=== PATIENT | male | born 2000 | race Hispanic/Latino ===

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

== ENCOUNTER 2022-09-25 22:09 | Emergency (ER) | payer SELFPAY ==
--- OUTSIDE RECORDS SUMMARY | 2022-09-25 22:12 | XMS REPORT | Continuity of Care Document ---
:[address] [facility] t Address [address] [place] [address] Care Team Providers Name Role Phone CEM PRADO Attending Clinician Unavailable Problems This patient has no known problems. Allergies, Adverse Reactions, Alerts This patient has no known allergies or adverse reactions. Medications This patient has no known medications. Procedures This patient has no known procedures. Encounters Start End Encounter Admission Attending Care Care Encounter Source Date/Time Date/Time Type Type Clinicians Facility Department ID 2020-04-18 2020-04-18 [id number] 18:29:00 22:07:00 Results This patient has no known results.
[2022-09-25 23:11] LABS: Urine Blood Trace-intact (Negative); Urine Glucose Negative (Negative); Urine Protein 1+ (Negative); Urine Specific Gravity 1.025 (1.005-1.030); Urine pH 6.5 (5.0-7.0)
--- NOTE | 2022-09-25 23:32 | EDPHYS ---
Physician Documentation [facility] Name: Robbi Perez Age: 22 yrs Sex: Male : 2000 Arrival Date: 09/25/2022 Time: 22:12 Bed 15 Private MD: ED Physician Ector Klein HPI: 09/25 23:27 This 22 yrs old Male presents to ER via Ambulatory with complaints of Urinary bs3 Incontinence. 23:27 22-year-old male no significant past medical history presents with pain with urination bs3 and dribbling for the past several days he notes last sexual activity was 2 months ago no history of sexually transmitted infections pain is moderate in intensity nothing makes it better or worse he did have similar episode several years ago saw a doctor and never got a diagnosis. Historical: - Allergies: 22:31 No Known Allergies; kb3 - Home Meds: 22:31 None [Active]; kb3 - PMHx: 22:31 None; kb3 - PSHx: 22:31 None; kb3 - Immunization history:: Adult Immunizations up to date, Client reports having NOT received the Covid vaccine. Last tetanus immunization: up to date. - Social history:: Smoking status: Reported history of juuling and/or vaping. ROS: 23:27 Constitutional: Negative for fever, chills bs3 23:27 All other systems are negative. Exam: 23:27 Constitutional: This is a well developed, well nourished patient who is awake, alert, bs3 and in no acute distress. Head/Face: Normocephalic, atraumatic. Eyes: Pupils equal round and reactive to light, extra-ocular motions intact. Lids and lashes normal. ENT: mmm, no posterior phyarngeal erythema Neck: Trachea midline, no thyromegaly, no neck stiffness Cardiovascular: Regular rate and rhythm with a normal S1 and S2. symmetric pulses in upper extremities Abdomen/GI: Soft, non-tender, no rebound or guarding Male : Normal genitalia with no discharge or lesions. Skin: Warm, dry with normal turgor. Normal color with no rashes, no lesions, and no evidence of cellulitis. MS/ Extremity: Pulses equal, no cyanosis. Neurovascular intact. Full, normal range of motion. Neuro: Awake and alert, GCS 15, oriented to person, place, time, and situation. Cranial nerves II-XII grossly intact. Motor strength 5/5 in all extremities. Sensory grossly intact. Vital Signs: 22:28 BP 133 / 83; Pulse 52; Resp 16; Temp 98.3; Pulse Ox 100% ; Weight 65.77 kg; Height 5 kb3 ft. 8 in. (172.72 cm); Pain 3/10; 23:57 BP 128 / 79; Pulse 61; Resp 18; Temp 98.1(O); Pulse Ox 100% on R/A; ke1 22:28 Body Mass Index 22.05 (65.77 kg, 172.72 cm) kb3 MDM: 22:34 Patient medically screened. bs3 23:27 Data reviewed: vital signs, nurses notes. ED course: Urine dipstick showed positive UTI bs3 discussed with patient patient does not think he has a sexually transmitted infection as he was only sexually active with 1 partner we gave options of testing and treating just treating and waiting for the result from treatment for a regular urinary tract infection patient preferred to treat for regular urinary tract infection strongly advised to return with fevers chills increased pain or any other concerning symptoms instructed to return if positive for GC/committee and instructed to follow-up with PCP and urology. 09/25 23:12 Order name: Urine Dipstick-Ancillary; Complete Time: 23:23 EDMS 09/25 23:27 Order name: GC (GONORR/CHLAMYDIA) Probe bs3 09/25 23:27 Order name: Urine Culture bs3 Administered Medications: No medications were administered Disposition Summary: 09/25/22 23:31 Discharge Ordered Location: Home bs3 Problem: new bs3 Symptoms: are unchanged bs3 Condition: Stable bs3 Diagnosis - UTI/ Urinary tract infection, site not specified bs3 Followup: bs3 - With: Private Physician - When: 1 week - Reason: Discharge Instructions: - Discharge Summary Sheet bs3 - Urinary Tract Infection, Adult bs3 Forms: - Medication Reconciliation Form bs3 - Thank You Letter bs3 - Work release form mw2 - Antibiotic Education bs3 - Prescription Opioid Use bs3 Prescriptions: - cefpodoxime 200 mg Oral Tablet - take 1 tablet by ORAL route every 12 hours with food; 20 tablet; Refills: 0, bs3 Product Selection Permitted Signatures: Dispatcher [employer] EDMS Agnes Woodruff, RN RN kb3 Ector Klein MD MD bs3
--- NOTE | 2022-09-25 23:32 | ER ---
Nurse's Notes [facility] Name: Robbi Perez Age: 22 yrs Sex: Male : 2000 Arrival Date: 09/25/2022 Time: 22:12 Bed 15 Private MD: Diagnosis: UTI/ Urinary tract infection, site not specified Presentation: 09/25 22:28 Chief complaint: Patient states: Pt reports pain with urination, urinary frequency, kb3 urinary incontinence x2-3 days with associated bilateral lower back pain. Coronavirus screen: Vaccine status: Patient reports being unvaccinated. Client denies travel out of the [place] in the last 14 days. Ebola Screen: Patient negative for fever greater than or equal to 101.5 degrees Fahrenheit, and additional compatible Ebola Virus Disease symptoms Patient denies exposure to infectious person. Patient denies travel to an Ebola-affected area in the 21 days before illness onset. Initial Sepsis Screen: Does the patient meet any 2 criteria? No. Patient's initial sepsis screen is negative. Does the patient have a suspected source of infection? No. Patient's initial sepsis screen is negative. Risk Assessment: Do you want to hurt yourself or someone else? Patient reports no desire to harm self or others. Onset of symptoms was September 22, 2022. 22:28 Method Of Arrival: Ambulatory kb3 22:28 Acuity: MATILDE 3 kb3 Triage Assessment: 22:31 General: Appears in no apparent distress. Behavior is calm, cooperative. Pain: kb3 Complains of pain in left low back, right low back and groin Pain does not radiate. Pain currently is 3 out of 10 on a pain scale. at worst was 10 out of 10 on a pain scale. Quality of pain is described as burning, sharp. 22:31 : Reports burning with urination, incontinence, urgency, urinary frequency. kb3 Historical: - Allergies: 22:31 No Known Allergies; kb3 - Home Meds: 22:31 None [Active]; kb3 - PMHx: 22:31 None; kb3 - PSHx: 22:31 None; kb3 - Immunization history:: Adult Immunizations up to date, Client reports having NOT received the Covid vaccine. Last tetanus immunization: up to date. - Social history:: Smoking status: Reported history of juuling and/or vaping. Screenin:30 Abuse screen: Denies threats or abuse. Nutritional screening: No deficits noted. ke1 Tuberculosis screening: No symptoms or risk factors identified. Fall Risk None identified. Vital Signs: 22:28 BP 133 / 83; Pulse 52; Resp 16; Temp 98.3; Pulse Ox 100% ; Weight 65.77 kg; Height 5 kb3 ft. 8 in. (172.72 cm); Pain 3/10; 23:57 BP 128 / 79; Pulse 61; Resp 18; Temp 98.1(O); Pulse Ox 100% on R/A; ke1 22:28 Body Mass Index 22.05 (65.77 kg, 172.72 cm) kb3 ED Course: 22:12 Patient arrived in ED. bp1 22:30 Patient has correct armband on for positive identification. ke1 22:30 Patient did not have IV access during this emergency room visit. ke1 22:31 Triage completed. kb3 22:31 Arm band placed on right wrist. kb3 22:34 Ector Klein MD is Attending Physician. bs3 23:31 Indiana Diaz, RN is Primary Nurse. ke1 23:38 Urine Culture Sent. ke1 23:56 No provider procedures requiring assistance completed. ke1 Administered Medications: No medications were administered Medication: 23:57 VIS not applicable for this client. ke1 Outcome: 23:31 Discharge ordered by . bs3 23:56 Discharged to home ambulatory. ke1 23:56 Condition: good 23:56 Discharge instructions given to patient. ke1 23:57 Patient left the ED. ke1 Signatures: Pat Byrne bp1 Indiana Diaz, JORGE RN ke1 Agnes Woodruff RN RN kb3 Ector Klein MD MD bs3
[2022-09-26 00:29] VITALS: O2SAT 100
[2022-09-26 00:30] VITALS: BP 128/79; TEMP 98.1
[2022-09-29 23:26] LABS: C.trachomatis RNA,TMA Not Detected (Not Detected)
== END 2022-09-25 23:57 | disposition home or self-care (01) ==
LOC: ER 22:09
DX: N39.0 Urinary tract infection, site not specified (principal)
CPT/HCPCS: 81003; 87077; 87086; 87088; 87186; 87490; 87590; 99283

== ENCOUNTER 2022-10-22 17:53 | Emergency (ER) | payer OTHER, SELFPAY ==
--- OUTSIDE RECORDS SUMMARY | 2022-10-22 17:55 | XMS REPORT | Continuity of Care Document ---
:2000 Author Organization [facility] t Address [address] [place] [address] Care Team Providers Name Role Phone CEM [...] ID 2020-04-18 2020-04-18 [facility] [id number] 18:29:00 22:07:00 Results This patient has no known results.
[2022-10-22] MEDS ORDERED: NA CHLORIDE 0.9% 1,000 ML ONE (18:22)
[2022-10-22 18:31] LABS: Protime INR 1.32
[2022-10-22 18:42] LABS: Absolute Lymphocytes (CBC) 2.3 K/uL (0.7-4.9); Hematocrit 40.1 % (39.6-49.0); Lymphocytes % 29.3 % (15.3-44.8); MCV 84.9 fL (80-100); MPV 7.7 fL (7.6-11.3); RBC Red Blood Cell Count 4.73 M/uL (4.33-5.43)
[2022-10-22 18:45] LABS: ALT/SGPT 20 U/L (12-78); AST/SGOT 14 U/L (15-37); Albumin 4.1 g/dL (3.4-5.0); Alkaline Phosphatase 57 U/L (45-117); BUN Blood Urea Nitrogen 20 mg/dL (7-18); Bicarbonate 25 mmol/L (21-32); Bilirubin Direct 0.4 mg/dL (0-0.2); Bilirubin Total 1.7 mg/dL (0.2-1.0); Glomerular Filtration Rate 98 ml/min (=/>90); Glucose Level 192 mg/dL (74-106); Potassium 3.2 mmol/L (3.5-5.1); Protein, Total 7.4 g/dL (6.4-8.2); Sodium Level 138 mmol/L (136-145)
--- NOTE | 2022-10-22 20:40 | EDPHYS ---
Physician Documentation [facility] Name: Robbi Perez Age: 22 yrs Sex: Male : 2000 Arrival Date: 10/22/2022 Time: 17:55 Bed 16 Private MD: ED Physician Avni Bowen HPI: 10/22 17:58 This 22 yrs old Male presents to ER via Unassigned with complaints of Anxiety. pm1 17:58 The patient presents to the emergency department with anxiety, from smoking THC from a pm1 vape pen he purchased from a gas station. Onset: The symptoms/episode began/occurred 2 hour(s) ago. Associated signs and symptoms: Pertinent positives; anxiety, palpitations, Pertinent negatives: chest pain, headache, nausea, shortness of breath, vomiting. Severity of symptoms: in the emergency department the symptoms are unchanged. The patient has not experienced similar symptoms in the past. The patient has not recently seen a physician. Patient daily marijuana smoker for the past year. Normally smokes marijuana in a joint but today he smoked THC from a vape pen and immediately started having anxiety and palpitations. Historical: - Allergies: 18:00 No Known Allergies; ss - Home Meds: 18:00 None [Active]; ss - PMHx: 18:00 None; ss - PSHx: 18:00 None; ss - Immunization history:: Adult Immunizations up to date, Client reports having NOT received the Covid vaccine. - Social history:: Smoking status: Patient reports the use of cigarette tobacco products, denies chronic smoking, but will smoke occasionally. ROS: 18:00 Constitutional: Negative for fever, chills, and weight loss. pm1 18:00 Respiratory: Negative for shortness of breath, cough, wheezing, and pleuritic chest pain, Abdomen/GI: Negative for abdominal pain, nausea, vomiting, diarrhea, and constipation, Back: Negative for injury and pain, MS/Extremity: Negative for injury and deformity, Skin: Negative for injury, rash, and discoloration, Neuro: Negative for headache, weakness, numbness, tingling, and seizure. 18:00 Cardiovascular: Positive for palpitations, Negative for chest pain. 18:00 Psych: Positive for anxiety. 18:00 All other systems are negative. Exam: 18:00 Constitutional: This is a well developed, well nourished patient who is awake, alert, pm1 and in no acute distress. Head/Face: Normocephalic, atraumatic. 18:00 Back: No spinal tenderness. No costovertebral tenderness. Full range of motion. Skin: Warm, dry with normal turgor. Normal color with no rashes, no lesions, and no evidence of cellulitis. MS/ Extremity: Pulses equal, no cyanosis. Neurovascular intact. Full, normal range of motion. 18:00 Eyes: Exam is negative for acute changes, Periorbital structures: no acute changes, Pupils: no acute changes, Extraocular movements: no acute changes, Conjunctiva: no acute changes, no injection. 18:00 ENT: Exam is negative for acute changes, Mouth: no acute changes, Lips: normal, moist, Oral mucosa: normal, pink and intact, moist. 18:00 Cardiovascular: Rate: tachycardic, actual rate is 111 bpm, Rhythm: regular, Pulses: no pulse deficits are appreciated, Heart sounds: normal, normal S1and S2, Edema: is not appreciated. 18:00 Respiratory: Exam negative for acute changes, respiratory distress, shortness of breath, Breath sounds: are clear throughout. 18:00 Abdomen/GI: Exam negative for acute changes, Inspection: abdomen appears normal, Palpation: abdomen is soft and non-tender, in all quadrants. 18:00 Neuro: Exam negative for acute changes, Orientation: is normal, Mentation: is normal, Motor: moves all fours. 18:00 Psych: Behavior/mood is anxious, Affect is animated, Oriented to person, place, time, Patient has no thoughts/intents to harm self or others. Delusions/hallucinations are not present. Vital Signs: 17:56 BP 142 / 84; Pulse 119; Resp 18; Temp 98.4; Pulse Ox 99% on R/A; Weight 63.5 kg; Height ss 5 ft. 8 in. (172.72 cm); Pain 0/10; 18:30 BP 128 / 76; Pulse 96; Resp 13; Pulse Ox 97% on R/A; tp1 18:58 BP 117 / 63; Pulse 82; Resp 18; Pulse Ox 98% on R/A; tp1 19:47 BP 106 / 58; Pulse 71; Resp 16; Temp 98.3; Pulse Ox 98% on R/A; Pain 0/10; ke1 20:47 BP 102 / 59; Pulse 73; Resp 17; Temp 98.2; Pulse Ox 100% on R/A; Pain 0/10; ke1 17:56 Body Mass Index 21.29 (63.50 kg, 172.72 cm) ss MDM: 17:56 Patient medically screened. pm1 18:02 Data reviewed: vital signs. Data interpreted: Pulse oximetry: on room air is 99 %. pm1 Interpretation: normal. 20:39 Counseling: I had a detailed discussion with the patient and/or guardian regarding: the pm1 historical points, exam findings, and any diagnostic results supporting the discharge/admit diagnosis, lab results, the need for outpatient follow up, to return to the emergency department if symptoms worsen or persist or if there are any questions or concerns that arise at home. 10/22 17:56 Order name: Acetaminophen; Complete Time: 18:53 pm1 10/22 17:56 Order name: Basic Metabolic Panel; Complete Time: 18:53 pm1 10/22 17:56 Order name: CBC with Diff; Complete Time: 18:45 pm1 10/22 17:56 Order name: ETOH Level; Complete Time: 18:53 pm1 10/22 17:56 Order name: Hepatic Function; Complete Time: 18:53 pm1 10/22 17:56 Order name: PT-INR; Complete Time: 18:38 pm1 10/22 17:56 Order name: Ptt, Activated; Complete Time: 18:38 pm1 10/22 17:56 Order name: Salicylate; Complete Time: 18:56 pm1 10/22 17:56 Order name: EKG; Complete Time: 17:57 pm1 10/22 17:56 Order name: EKG - Nurse/Tech; Complete Time: 18:15 pm1 10/22 17:56 Order name: IV Saline Lock; Complete Time: 17:59 pm1 10/22 17:56 Order name: Labs collected and sent; Complete Time: 17:59 pm1 EC:13 Rate is 100 beats/min. Rhythm is regular, Normal Sinus Rhythm with No ectopy. QRS [place] pm1 is Normal. ME interval is normal. QRS interval is normal. QT interval is normal. No Q waves. T waves are Normal. No ST changes noted. Clinical impression: Normal ECG. Administered Medications: 17:58 Drug: NS 0.9% 500 ml Volume: 500 ml; Route: IV; Rate: 1 bolus; Site: left antecubital; tp1 19:00 Follow up: IV Status: Completed infusion ke1 18:24 Drug: NS 0.9% 1000 ml Route: IV; Rate: 1000 ml; Site: left antecubital; tp1 19:15 Follow up: Rate change ml; IV Status: Completed infusion ke1 Disposition: 18:54 Co-signature as Attending Physician, Avni Bowen DO I was immediately available on-site ms3 in the Emergency Department for consultation in the care of the patient. Disposition Summary: 10/22/22 20:39 Discharge Ordered Location: Home pm1 Problem: new pm1 Symptoms: have improved pm1 Condition: Stable pm1 Diagnosis - Cannabis abuse pm1 - Dehydration pm1 Followup: pm1 - With: Emergency Department - When: As needed - Reason: Worsening of condition Followup: pm1 - With: Private Physician - When: 2 - 3 days - Reason: Recheck today's complaints, Continuance of care, Re-evaluation by your physician Discharge Instructions: - Discharge Summary Sheet pm1 - Dehydration, Adult pm1 - Cannabis Use Disorder pm1 Forms: - Medication Reconciliation Form pm1 - Thank You Letter pm1 - Antibiotic Education pm1 - Prescription Opioid Use pm1 Signatures: Dispatcher [employer] Amber Adams RN RN ss Marinas, Patrick, GIORGIO FEEDER LOADER pm1 Avni Bowen DO DO ms3 Sally Moses RN RN tp1 Indiana Diaz RN ke1
--- NOTE | 2022-10-22 20:40 | ER ---
Nurse's Notes [facility] Name: Robbi Perez Age: 22 yrs Sex: Male : 2000 Arrival Date: 10/22/2022 Time: 17:55 Bed 16 Private MD: Diagnosis: Cannabis abuse;Dehydration Presentation: 10/22 17:56 Chief complaint: Patient states: Anxiety that began after smoking "vape pen" from gas [place] station. Pt reports a hx of smoking marijuana for 1 year, has not smoked in 1 week until today. Initial HR on scene was 164, and came down to 130 after 250mL fluid bolus. Coronavirus screen: Client denies travel out of the [place] in the last 14 days. Ebola Screen: Patient denies exposure to infectious person. Patient denies travel to an Ebola-affected area in the 21 days before illness onset. Initial Sepsis Screen: Does the patient meet any 2 criteria? No. Patient's initial sepsis screen is negative. Does the patient have a suspected source of infection? No. Patient's initial sepsis screen is negative. Risk Assessment: Do you want to hurt yourself or someone else? Patient reports no desire to harm self or others. Onset of symptoms was October 22, 2022. 17:56 Method Of Arrival: EMS: [facility] 17:56 Acuity: MATILDE 3 ss Historical: - Allergies: 18:00 No Known Allergies; ss - Home Meds: 18:00 None [Active]; ss - PMHx: 18:00 None; ss - PSHx: 18:00 None; ss - Immunization history:: Adult Immunizations up to date, Client reports having NOT received the Covid vaccine. - Social history:: Smoking status: Patient reports the use of cigarette tobacco products, denies chronic smoking, but will smoke occasionally. Screenin:59 Abuse screen: Denies threats or abuse. Denies injuries from another. Nutritional tp1 screening: No deficits noted. Tuberculosis screening: No symptoms or risk factors identified. Fall Risk None identified. Assessment: 17:58 General: Appears in no apparent distress. comfortable, Behavior is calm, cooperative. tp1 Pain: Denies pain. Neuro: Level of Consciousness is awake, alert, obeys commands, Oriented to person, place, time, situation. Cardiovascular: Patient's skin is warm and dry. Cardiovascular: Rhythm is sinus tachycardia. Respiratory: Airway is patent Respiratory effort is even, unlabored. GI: Abdomen is flat, non-distended. : No signs and/or symptoms were reported regarding the genitourinary system. EENT: No signs and/or symptoms were reported regarding the EENT system. Derm: Skin is pink, warm \\T\\ dry. Musculoskeletal: Circulation, motion, and sensation intact. 17:58 Cardiovascular: Denies chest pain. tp1 18:22 Reassessment: Family at bedside. tp1 18:25 Reassessment: HR 136, PT CO chest pain, provider notified. asked family to wait in tp1 lobby. 18:28 Reassessment: PT stated family being in the room makes him anxious. HR 99. tp1 18:58 Reassessment: Patient appears in no apparent distress at this time. No changes from tp1 previously documented assessment. Patient and/or family updated on plan of care and expected duration. Pain level reassessed. Patient is alert, oriented x 3, equal unlabored respirations, skin warm/dry/pink. Patient denies pain at this time. 19:46 Reassessment: Patient appears in no apparent distress at this time. Patient and/or ke1 family updated on plan of care and expected duration. Pain level reassessed. Patient is alert, oriented x 3, equal unlabored respirations, skin warm/dry/pink. Patient denies pain at this time. 19:46 Reassessment: Still unable to provide urine. ke1 20:24 Reassessment: Patient lying in bed sleeping. ke1 20:48 Reassessment: Patient denies pain at this time. Patient states feeling better. Patient ke1 states symptoms have improved. Vital Signs: 17:56 BP 142 / 84; Pulse 119; Resp 18; Temp 98.4; Pulse Ox 99% on R/A; Weight 63.5 kg; Height ss 5 ft. 8 in. (172.72 cm); Pain 0/10; 18:30 BP 128 / 76; Pulse 96; Resp 13; Pulse Ox 97% on R/A; tp1 18:58 BP 117 / 63; Pulse 82; Resp 18; Pulse Ox 98% on R/A; tp1 19:47 BP 106 / 58; Pulse 71; Resp 16; Temp 98.3; Pulse Ox 98% on R/A; Pain 0/10; ke1 20:47 BP 102 / 59; Pulse 73; Resp 17; Temp 98.2; Pulse Ox 100% on R/A; Pain 0/10; ke1 17:56 Body Mass Index 21.29 (63.50 kg, 172.72 cm) ED Course: 17:55 Patient arrived in ED. 17:56 Santos Meza NP is PHCP. pm1 17:56 Avni Bowen DO is Attending Physician. pm1 17:58 Sally Moses, JORGE is Primary Nurse. tp1 17:59 No provider procedures requiring assistance completed. Maintain EMS IV. Dressing tp1 intact. Good blood return noted. Site clean \\T\\ dry. Gauge \\T\\ site: 20G LAC . 17:59 Patient has correct armband on for positive identification. Placed in gown. Bed in low tp1 position. Call light in reach. Side rails up X 1. 17:59 Client placed on continuous cardiac and pulse oximetry monitoring. NIBP monitoring tp1 applied. 18:00 Triage completed. ss 18:00 Arm band placed on right wrist. ss 20:54 IV discontinued. ke1 Administered Medications: 17:58 Drug: NS 0.9% 500 ml Volume: 500 ml; Route: IV; Rate: 1 bolus; Site: left antecubital; tp1 19:00 Follow up: IV Status: Completed infusion ke1 18:24 Drug: NS 0.9% 1000 ml Route: IV; Rate: 1000 ml; Site: left antecubital; tp1 19:15 Follow up: Rate change ml; IV Status: Completed infusion ke1 Medication: 18:19 VIS not applicable for this client. tp1 Outcome: 20:39 Discharge ordered by . pm1 20:54 Discharged to home ambulatory. ke1 20:54 Condition: good 20:54 Discharge instructions given to patient. 20:54 Patient left the ED. ke1 Signatures: Amber Yancey RN RN Santos Meza NP [employer]AYOUT MECHANIC pm1 Sally Moses RN RN tp1 Indiana Diaz RN RN ke1 Corrections: (The following items were deleted from the chart) 18:28 18:15 Reassessment: Family at bedside. tp1 tp1 18:28 18:20 Reassessment: HR 136, PT CO chest pain, provider notified. asked family to wait tp1 in lobby. tp1 18:30 18:28 Reassessment: HR 99 tp1 tp1 18:31 18:30 BP 128 / 76; Pulse 92bpm; Resp 13bpm; Pulse Ox 97% RA; tp1 tp1
[2022-10-22 21:18] VITALS: BP 102/59; TEMP 98.2; O2SAT 100
--- NOTE | 2022-10-23 16:33 | EKG ---
Test Date: 2022-10-22 Test Time: 18:09:36 Carton Inspector: MARCIAL MEASUREMENT RESULTS: Intervals: Rate: 100 GA: 148 QRSD: 88 QT: 334 QTc: 430 [place]: P: 81 GA: 148 QRS: 85 T: 45 INTERPRETIVE STATEMENTS: Normal sinus rhythm Normal ECG No previous ECG available for comparison Electronically Signed On 10-23-22 16:32:26 CERAMIC TILER by Josr Hernadez
== END 2022-10-22 20:54 | disposition home or self-care (01) ==
LOC: ER 17:53
DX: F12.10 Cannabis abuse, uncomplicated (principal); E86.0 Dehydration; F17.210 Nicotine dependence, cigarettes, uncomplicated
CPT/HCPCS: 93005; 85025; 80048; 36415; 80320; 80329 ×2; 85610; 80076; 85730; 96360; 99284; J7030

== ENCOUNTER → 2023-11-25 | Emergency (ER) | payer OTHER, SELFPAY ==
[~2023-11-25] MED LIST: KETOROLAC 30 MG/ML INJ ONE; NA CHLORIDE 0.9% 1,000 ML ONE; ONDANSETRON 4 MG/2 ML VIAL ONE
--- OUTSIDE RECORDS SUMMARY | 2023-11-25 09:34 | XMS REPORT | Continuity of Care Document ---
Author Name Unknown Address [address] [place] [address] [facility] thconnect Address [address] [place] [address] Care Team Providers Care Senior Service Technician Name Role Phone PCP, PATIENT DOES NOT HAVE A Primary Care Physic juice Unavailable BRIONNA RIVERA Attending Clinician Unavailable Ele Montenegro MD Attending Clinician [phone] Brionna Rivera MD S Attending Clinician [phone] CEM PRADO Attending Clinician Unavailable ELE MONTENEGRO Admitting Clinician Unavailabl e Payers Payer Name Policy Type Policy Number Effective Date Expirati on Date Source [facility] [id number] 2022 00:00:00 Allergies, Adverse Reactions, Alerts Allergy Name Allergy Type Status Severity Reaction(s) Onset Date Inactive Date Treating Clinician Comments Source NO KNOWN ALLERGIE S Drug Class Active [facility] Social History Social Habit Start Date Stop Date Quantity Comments Source Exposure to SARS-CoV-2 (event) 2023-01-01 00:00:00 2023-01-11 17:01:00 Not sure [facility] Sex Assigned At 2000 00:00:00 2000 00:00:00 [facility] Smoking Status Start Date Stop Date Source Tobacco smoking consumption unknown [facility] Medications Ordered Medication Name Filled Medication Name Start Date Stop Date Current Medication? Ordering Clinician Indication Dosage Frequency Signature (SIG) Comments Components Source cefTRIAXone (ROCEPHIN) injection 500 mg 01-12 02:45: 00 01-12 02:16 :00 No 500mg 500 mg, Intramuscu lar, ONCE, 1 dose, On Wed01/11/23 at 2045, MEGHA
Re ason for Anti-Infec tive: Documented Infection< br>Documen quyen Infection Site: Urine
D uration of Therapy: Other (see Comments) [facility] doxycycline hyclate (Vibramycin ) capsule 100 mg 01-12 02:00: 00 01-12 02:16 :00 No 100mg 100 mg, Oral, ONCE, 1 dose, On Wed01/11/23 at 2000, MEGHA
Re ason for Anti-Infec tive: Documented Infection< br>Documen quyen Infection Site: Urine
D uration of Therapy: Other (see Comments) [facility] iopamidol (ISOVUE 370-500 mL) injection 72 mL 01-12 01:15: 00 01-12 01:15 :00 No [id number] 72mL 72 mL, Intravenou s, ONCE, 1 dose, On Wed01/11/23 at 1915, Routine [facility] doxycycline hyclate 100 mg capsule 01-11 00:00: 00 Yes [id number] 100mg Take 1 capsule by mouth in the morning and 1 capsule in the evening. [facility] ibuprofen 800 mg tablet 01-11 00:00: 00 Yes [id number] 800mg Take 1 tablet by mouth every 8 (eight) hours as needed for Pain (scale 4-6). [facility] Vital Signs Vital Name Observation Time Observation Value Comments Amy loyd Systolic blood pressure 2023-01-12 02:23:00 130 mm[Hg] [facility] Diastolic blood pressure 2023-01-12 02:23:00 82 mm[Hg] [facility] Heart rate 2023-01-12 02:23:00 69 /min [facility] Respiratory rate 2023-01-12 02:23:00 18 /min [facility] Oxygen saturation in Arterial blood by Pulse oximetry 2023-01-12 02:23:00 100 /min [place] [facility] Body temperature 2023-01-11 23:03:00 37.28 [place] [facility] Body height 2023-01-11 23:03:00 172.7 cm [facility] Body weight 2023-01-11 23:03:00 70.308 kg [facility] BMI 2023-01-11 23:03:00 23.57 kg/m2 [facility] Procedures Procedure Date / Time Performed Performing Clinicia n Source COMP. METABOLIC PANEL (50818) 2023-01-11 23:30:00 Ele Montenegro [facility] CBC WITH DIFF 2023-01-11 23:30:00 [facility] 2023-01-11 23:30:00 Ele Montenegro [facility] CONSENT/REFUSAL FOR DIAGNOSIS AND TREATMENT 2023-01-11 22:52:38 Doctor Unassigned, [place] [facility] Encounters Start Date/Time End Date/Time Encounter Type Admission Type Attending Clinicians Care Facility Care Department Encounter ID Source 2023-01-11 17:05:00 2023-01-11 20:27:00 Emergency X BRIONNA RIVERA [facility] ERT [id number] [facility] 2023-01-11 17:05:00 2023-01-11 20:27:00 Emergency Ele Montenegro [place] [facility] [id number] [facility] 2020-04-18 18:29:00 2020-04-18 22:07:00 Emergency E CEM PRADO [facility]500 [facility] Results Test Description Test Time Test Comments Results Result Co mments Source [facility] [id number] 23:54:09* Test Item Value Reference Range Interpretation Comme nts WBC (test code = 6690-2) 7.13 See_Comment [Automated messa ge] The system which generated this result transmitted reference range: 4.20 - 10.70 10*3/?L. The reference range was not used to interpret this result as normal/abnormal. RBC (test code = 789-8) 4.17 See_Comment L [Automated messa ge] The system which generated this result transmitted reference range: 4.26 - 5.52 10*6/?L. The reference range was not used to interpret this result as normal/abnormal. HGB (test code = 718-7) 12.9 g/dL 12.2-16.4 HCT (test code = 4544-3) 37.9 % 38.4-49.3 L MCV (test code = 787-2) 90.9 fL 81.7-95.6 MCH (test code = 785-6) 30.9 pg 26.1-32.7 MCHC (test code = 786-4) 34.0 g/dL 31.2-35.0 RDW-SD (test code = 34915-6) 39.5 fL 38.5-51.6 RDW-CV (test code = 788-0) 11.9 % 12.1-15.4 L PLT (test code = 777-3) 263 See_Comment [Automated messa ge] The system which generated this result transmitted reference range: 150 - 328 10*3/?L. The reference range was not used to interpret this result as normal/abnormal. MPV (test code = 36908-0) 9.0 fL 9.8-13.0 L NRBC/100 WBC (test code = 6993028342) 0.0 See_Comment [Automated [employer]] The system which generated this result transmitted reference range: 0.0 - 10.0 /100 WBCs. The reference range was not used to interpret this result as normal/abnormal. NRBC x10^3 (test code = 9259122653) See_Comment [Automated messa ge] The system which generated this result transmitted reference range: 10*3/?L. The reference range was not used to interpret this result as normal/abnormal. GRAN MAT (NEUT) % (test code = 770-8) 52.0 % IMM GRAN % (test code = 4647374776) 0.30 % LYMPH % (test code = 736-9) 38.1 % MONO % (test code = 5905-5) 7.2 % EOS % (test code = 713-8) 2.0 % BASO % (test code = 706-2) 0.4 % GRAN MAT x10^3(ANC) (test code = 9429086771) 3.71 10*3/uL 1.99-6.95 IMM GRAN x10^3 (test code = 0058526929) 0.00-0.06 LYMPH x10^3 (test code = 731-0) 2.72 10*3/uL 1.09-3.23 MONO x10^3 (test code = 742-7) 0.51 10*3/uL 0.36-1.02 EOS x10^3 (test code = 711-2) 0.14 10*3/uL 0.06-0.53 BASO x10^3 (test code = 704-7) 0.03 10*3/uL 0.01-0.09 Lab Interpretation (test code = 79334-2) Abnormal [facility]
[2023-11-25 10:04] LABS: Absolute Lymphocytes (CBC) 1.8 K/uL (0.7-4.9); Hematocrit 42.2 % (39.6-49.0); Lymphocytes % 25.2 % (15.3-44.8); MCV 86.2 fL (80-100); MPV 7.6 fL (7.6-11.3); Platelets 255 thou/uL (152-406)
[2023-11-25 10:20] LABS: Albumin 4.1 g/dL (3.4-5.0); Bilirubin Total 0.4 mg/dL (0.2-1.0); Blood Morphology Comment NOT SEEN (NOT SEEN); Platelet Estimate ADEQ; Potassium 3.9 mEq/L (3.5-5.1); Protein, Total 8.1 g/dL (6.4-8.2); White Blood Cell Scan OK (OK)
[2023-11-25 10:27] LABS: Specific Gravity 1.014 (1.005-1.030); Urine Bacteria None Seen /HPF (<20); Urine Bilirubin NEGATIVE (Negative); Urine Blood Negative (Negative); Urine Clarity Clear (Clear); Urine Color Light-Yellow (Yellow); Urine Glucose NEGATIVE (Negative); Urine Protein NEGATIVE (Negative); Urine RBC <5 /HPF (None Seen); Urine Urobilinogen Normal (Normal); Urine pH 6.5 (5.0-7.0)
--- NOTE | 2023-11-25 11:20 | RAD REPORT ---
EXAM DESCRIPTION: CT - Stone Protocol - 11/25/2023 10:55 am CLINICAL HISTORY: left flank pain;Abd pain COMPARISON: Abdomen Pelvis W Contrast dated 06/27/2016 TECHNIQUE: Thin cut axial CT imaging of the abdomen and pelvis was performed without IV contrast. Mu ltiplanar reformats were generated and reviewed. All CT scans are performed using dose optimization technique as appropriate and may include automated exposure control or mA/KV adjustment according to patient size. FINDINGS: No suspicious findings in the lung bases. The liver, spleen, adrenal glands, and pancreas show no suspicious findings. Gallbladder and biliary tree are also without suspicious finding. Symmetric renal contour, without suspicious parenchymal findings within limits of noncontrast techniq ue. No evidence of radiopaque calculi. Mild prominence of the left renal pelvis and proximal through mid left ureter, without adjacent fat stranding or evidence of radiopaque calculi. No dilated bowel loops or bowel wall thickening. No free air, free fluid or inflammatory stranding. N o hernia, mass or bulky lymphadenopathy. The urinary bladder is markedly distended without focal wall abnormalities although there is mild diffuse wall thickening. No evidence of bladder calculi. No suspicious bony findings. IMPRESSION: Mild prominence of the left renal pelvis and proximal to mid left ureter, without eviden ce of obstructing calculi. Markedly distended bladder with mild diffuse bladder wall thickening. Findings may relate to a recently passed stone or sequelae of longstanding bladder outlet obstruction with reflux along the left ureter. Please correlate clinically.
--- NOTE | 2023-11-25 13:33 | ER ---
Nurse's Notes [facility] Name: Robbi Perez Age: 23 yrs Sex: Male : 2000 Arrival Date: 11/25/2023 Time: 09:32 Bed 5 Private MD: Diagnosis: Chronic bladder outlet obstruction, left flank pain, urinary incontinence Presentation: 11/25 09:44 Chief complaint: Patient states: Abdominal pain and low back pain started last night ll1 after eating. N/V today. No fever. Coronavirus screen: Client denies travel out of the [place] in the last 14 days. At this time, the client does not indicate any symptoms associated with coronavirus-19. Ebola Screen: Patient denies travel to an Ebola-affected area in the 21 days before illness onset. Initial Sepsis Screen: Does the patient meet any 2 criteria? No. Patient's initial sepsis screen is negative. Does the patient have a suspected source of infection? Yes: Acute abdominal pain. Risk Assessment: Do you want to hurt yourself or someone else? Patient reports no desire to harm self or others. Onset of symptoms was November 24, 2023. 09:44 Method Of Arrival: Ambulatory ll1 09:44 Acuity: MATILDE 3 ll1 Triage Assessment: 09:45 General: Appears uncomfortable, Behavior is calm, cooperative, appropriate for age. ll1 Pain: Complains of pain in L abdomen Pain currently is 4 out of 10 on a pain scale. Quality of pain is described as aching, crampy. GI: Reports lower abdominal pain, upper abdominal pain, cramping, nausea, vomiting. Historical: - Allergies: 09:44 No Known Allergies; ll1 - PMHx: 09:44 None; ll1 - PSHx: 09:44 None; ll1 - Immunization history:: Adult Immunizations up to date. - Social history:: Smoking status: Reported history of juuling and/or vaping. Screenin:48 [facility] Fall Risk Assessment (Adult) History of falling in the last 3 months, kc6 including since admission No falls in past 3 months (0 pts) Confusion or Disorientation No (0 pts) Intoxicated or Sedated No (0 pts) Impaired Gait No (0 pts) Mobility Assist Device Used No (0 pt) Altered Elimination No (0 pt) Score/Fall Risk Level 0 - 2 = Low Risk. Abuse screen: Denies threats or abuse. Denies injuries from another. Nutritional screening: No deficits noted. Tuberculosis screening: No symptoms or risk factors identified. Assessment: 09:49 Reassessment: please see triage assessment. kc6 10:49 Reassessment: Patient appears in no apparent distress at this time. No changes from [facility] previously documented assessment. Patient and/or family updated on plan of care and expected duration. Pain level reassessed. Patient is alert, oriented x 3, equal unlabored respirations, skin warm/dry/pink. 11:42 Reassessment: Patient appears in no apparent distress at this time. No changes from kc6 previously documented assessment. Patient and/or family updated on plan of care and expected duration. Pain level reassessed. Patient is alert, oriented x 3, equal unlabored respirations, skin warm/dry/pink. 11:44 Reassessment: No changes from previously documented assessment. Patient and/or family ll1 updated on plan of care and expected duration. Pain level reassessed. Patient is alert, oriented x 3, equal unlabored respirations, skin warm/dry/pink. Patient states feeling better. 12:07 Reassessment: contacted transfer and pumphouse operator chief for bladder scanner. kc6 12:15 Reassessment: PRE VOID BLADDER SCAN = [address] GONZALEZ NOTIFIED. kc6 12:24 Reassessment: POST VOID RESIDUAL = [address] GONZALEZ NOTIFIED. kc6 13:20 Reassessment: No changes from previously documented assessment. gait steady to restroom.ll1 13:42 Reassessment: No changes from previously documented assessment. Patient and/or family ll1 updated on plan of care and expected duration. Pain level reassessed. 13:43 GI: Bowel sounds present X 4 quads. Abd is soft and non tender X 4 quads. ll1 Vital Signs: 09:44 BP 153 / 89; Pulse 83; Resp 17; Temp 98.5; Pulse Ox 100% ; Weight 68.04 kg; Height 5 ll1 ft. 8 in. ; Pain 4/10; 10:31 BP 116 / 81; Pulse 69; Pulse Ox 100% on R/A; ll1 11:42 BP 106 / 67; Pulse 66; Resp 16 S; Pulse Ox 99% on R/A; kc6 11:44 BP 99 / 59; Pulse 65; Resp 16; Pulse Ox 98% ; Pain 0/10; ll1 12:23 BP 120 / 73; Pulse 62; Pulse Ox 100% ; ll1 13:00 BP 125 / 72; Pulse 84; Pulse Ox 95% ; ll1 13:43 BP 111 / 75; Pulse 57; Resp 17; Pulse Ox 100% ; ll1 09:44 Body Mass Index 22.81 (68.04 kg, 172.72 cm) ll1 09:44 Pain Scale: Adult ll1 11:44 Pain Scale: Adult ll1 ED Course: 09:36 Patient arrived in ED. mg5 09:36 Cb Gonzalez MD is Attending Physician. kdr 09:39 Gomez Mcmullen, JORGE is Primary Nurse. ll1 09:39 Arm band placed on Patient placed in an exam room, on a stretcher. ll1 09:45 Triage completed. ll1 09:48 Provided Education on: ER procedures and process. ll1 09:48 Inserted saline lock: 20 gauge in right antecubital area, using aseptic technique. kc6 Blood collected. Patient maintains SpO2 saturation greater than 95% on room air. 09:49 Patient has correct armband on for positive identification. Bed in low position. Call kc6 light in reach. Side rails up X2. Adult w/ patient. Client placed on continuous cardiac and pulse oximetry monitoring. NIBP monitoring applied. 10:55 CT Stone Protocol In Process Unspecified. EDMS 13:42 No provider procedures requiring assistance completed. IV discontinued, intact, ll1 bleeding controlled, No redness/swelling at site. Pressure dressing applied. Administered Medications: 11:01 Drug: Ketorolac IVP 15 mg IVP once Route: IVP; Site: right antecubital; kc6 11:42 Follow up: Response: No adverse reaction; Pain is decreased kc6 11:01 Drug: Ondansetron IVP 4 mg IVP once; over 2 minutes Route: IVP; Site: right antecubital;kc6 11:43 Follow up: Response: No adverse reaction; Nausea is decreased kc6 11:01 Drug: NS 0.9% IV 1000 ml IV at 1 bolus Per protocol; 1000 mL bolus Route: IV; Rate: 1 kc6 bolus; Site: right antecubital; 11:43 Follow up: Response: No adverse reaction; IV Status: Completed infusion; IV Intake: kc6 1000ml Medication: 10:02 VIS not applicable for this client. ll1 Intake: 11:43 IV: 1000ml; Total: 1000ml. kc6 Outcome: 13:33 Discharge ordered by . kdr 13:43 Discharged to home ambulatory, ll1 13:43 Condition: stable 13:43 Discharge instructions given to patient, Instructed on discharge instructions, follow up and referral plans. Demonstrated understanding of instructions, follow-up care, 13:46 Patient left the ED. 1 Signatures: Dispatcher [employer] EDMS Cb Gonzalez MD MD kdr Gomez Mcmullen RN RN ll1 Madhuri Kraft RN RN kc6 Cindi Vincent 5
--- NOTE | 2023-11-25 13:33 | EDPHYS ---
Physician Documentation [facility] Name: Robbi Perez Age: 23 yrs Sex: Male : 2000 Arrival Date: 11/25/2023 Time: 09:32 Bed 5 Private MD: ED Physician Cb Echeverria HPI: 11/25 15:25 This 23 yrs old Male presents to ER via Ambulatory with complaints of kdr Abdominal Pain, Back Pain. 15:26 Patient presents with lower abdominal pain and low back pain started last night after kdr eating. He denies any nausea or vomiting today and has had no fever. Patient does have a long history of urinary incontinence. Mostly at night. He has not been evaluated by a urologist for this in the past.. Onset: The symptoms/episode began/occurred last night. Severity of symptoms: At their worst the symptoms were mild in the emergency department the symptoms are unchanged. The patient has not experienced similar symptoms in the past. The patient has not recently seen a physician. Historical: - Allergies: :44 No Known Allergies; ll1 - PMHx: :44 None; ll1 - PSHx: :44 None; ll1 - Immunization history:: Adult Immunizations up to date. - Social history:: Smoking status: Reported history of juuling and/or vaping. ROS: 15:26 Constitutional: Negative for fever, chills, and weight loss, Eyes: Negative for injury, kdr pain, redness, and discharge, ENT: Negative for injury, pain, and discharge, Neck: Negative for injury, pain, and swelling, Cardiovascular: Negative for chest pain, palpitations, and edema, Respiratory: Negative for shortness of breath, cough, wheezing, and pleuritic chest pain, MS/Extremity: Negative for injury and deformity, Skin: Negative for injury, rash, and discoloration, Neuro: Negative for headache, weakness, numbness, tingling, and seizure activity. Psych: Negative for depression, anxiety, suicide ideation, homicidal ideation, and hallucinations, Allergy/Immunology: Negative for hives, rash, and allergies, Endocrine: Negative for neck swelling, polydipsia, polyuria, polyphagia, and marked weight changes, Hematologic/Lymphatic: Negative for swollen nodes, abnormal bleeding, and unusual bruising, 15:26 Abdomen/GI: Positive for abdominal pain, Flank pain, Negative for nausea, vomiting, and diarrhea, black/tarry stool, rectal pain, rectal bleeding, bowel incontinence, 15:26 Back: Positive for pain at rest, pain with movement, 15:26 : Positive for urinary symptoms, urinary frequency, small amounts, difficulty kdr urinating, bladder incontinence Negative for injury or acute deformity, hematuria, pelvic pain, burning with urination, foul smelling urine, penile discharge, penile pain, testicular pain Exam: 15:26 Constitutional: This is a well developed, well nourished patient who is awake, alert, kdr and in no acute distress. Head/Face: Normocephalic, atraumatic. Eyes: Pupils equal round and reactive to light, extra-ocular motions intact. Lids and lashes normal. Conjunctiva and sclera are non-icteric and not injected. Cornea within normal limits. Periorbital areas with no swelling, redness, or edema. Neck: Trachea midline, no thyromegaly or masses palpated, and no cervical lymphadenopathy. Supple, full range of motion without nuchal rigidity, or vertebral point tenderness. No Meningismus. Vital Signs: 09:44 BP 153 / 89; Pulse 83; Resp 17; Temp 98.5; Pulse Ox 100% ; Weight 68.04 kg; Height 5 ll1 ft. 8 in. ; Pain 4/10; 10:31 BP 116 / 81; Pulse 69; Pulse Ox 100% on R/A; ll1 11:42 BP 106 / 67; Pulse 66; Resp 16 S; Pulse Ox 99% on R/A; kc6 11:44 BP 99 / 59; Pulse 65; Resp 16; Pulse Ox 98% ; Pain 0/10; ll1 12:23 BP 120 / 73; Pulse 62; Pulse Ox 100% ; ll1 13:00 BP 125 / 72; Pulse 84; Pulse Ox 95% ; ll1 13:43 BP 111 / 75; Pulse 57; Resp 17; Pulse Ox 100% ; ll1 09:44 Body Mass Index 22.81 (68.04 kg, 172.72 cm) ll1 09:44 Pain Scale: Adult ll1 11:44 Pain Scale: Adult ll1 MDM: 13:33 Patient medically screened. kdr 15:29 Data reviewed: vital signs, nurses notes. kdr 11/25 09:52 Order name: CBC with Diff; Complete Time: 10:45 kdr 1228 09:52 Order name: CMP; Complete Time: 10:45 [facility] 11/25 09:52 Order name: Lipase; Complete Time: 10:45 [facility] 11/25 09:52 Order name: Urinalysis w/ reflexes; Complete Time: 10:45 [facility] 11/25 10:09 Order name: CBC Smear Scan; Complete Time: 10:45 [facility] 11/25 10:45 Order name: CT Stone Protocol; Complete Time: 11:54 [facility] 11/25 09:52 Order name: IV Saline Lock; Complete Time: 09:53 kdr 11/25 09:52 Order name: Labs collected and sent; Complete Time: 09:53 [facility] 11/25 11:55 Order name: Bladder Scanner: Pre \T\ Post void; Complete Time: 12:23 kdr Administered Medications: 11:01 Drug: Ketorolac IVP 15 mg IVP once Route: IVP; Site: right antecubital; kc6 11:42 Follow up: Response: No adverse reaction; Pain is decreased kc6 11:01 Drug: Ondansetron IVP 4 mg IVP once; over 2 minutes Route: IVP; Site: right antecubital;kc6 11:43 Follow up: Response: No adverse reaction; Nausea is decreased kc6 11:01 Drug: NS 0.9% IV 1000 ml IV at 1 bolus Per protocol; 1000 mL bolus Route: IV; Rate: 1 kc6 bolus; Site: right antecubital; 11:43 Follow up: Response: No adverse reaction; IV Status: Completed infusion; IV Intake: kc6 1000ml Disposition Summary: 11/25/23 13:33 Discharge Ordered Notes: Location: Home kdr Problem: an ongoing problem kdr Symptoms: are unchanged kdr Condition: Stable kdr Diagnosis - Chronic bladder outlet obstruction, left flank pain, urinary incontinence kdr Followup: kdr - With: Private Physician - When: 2 - 3 days - Reason: If symptoms return, Further diagnostic work-up, Recheck today's complaints, Continuance of care, Re-evaluation by your physician Discharge Instructions: - Discharge Summary Sheet kdr - Urinary Incontinence kdr - Flank Pain, Adult, Iobs-yu-Iter kdr Forms: - Medication Reconciliation Form kdr - Thank You Letter kdr - Patient Portal Instructions kdr - Leadership Thank You Letter kdr - School release form ll1 Signatures: Dispatcher [employer] Cb Harry MD MD kdr Gomez Mcmullen, RN RN ll1 Madhuri Kraft RN RN kc6
[2023-11-25 14:15] VITALS: TEMP 98.5
[2023-11-25 14:23] VITALS: BP 111/75; O2SAT 100
== END ==
LOC: ER 09:32
DX: N32.0 Bladder-neck obstruction (principal); R32 Unspecified urinary incontinence
CPT/HCPCS: 36415; 74176; 76377; 80053; 81001; 83690; 85025; 96361; 96374; 96375; 99285; J2405; J7030

== ENCOUNTER 2024-02-24 14:22 | Emergency (ER) | payer BC ==
--- OUTSIDE RECORDS SUMMARY | 2024-02-24 14:26 | XMS REPORT | Continuity of Care Document ---
Author Name Unknown Address [address] [place] [address] [facility] thconnect Address [address] [place] [address] Care Team Providers Care Properties Supervisor Name Role Phone PCP, PATIENT DOES NOT HAVE A Primary Care Physic juice Unavailable WELLINGTON KING Attending Clinician Unavailable ISABEL BROWER Attending Clinician Unavailab FRANNIE Stevenson Attending Clinician Unavailable LAB39 Attending Clinician Unavailable PRITI JAMES Attending Clinician Unavailable Ele Montenegro MD Attending Clinician [phone] Priti James MD Attending Clinician ELE MONTENEGRO Admitting Clinician Unavailabl e Payers Payer Name Policy Type Policy Number Effective Date Expirati on Date Source BC 2 [id number] 2023 00:00:00 [facility] [id number] 2022 00:00:00 Problems Condition Name Condition Details Condition Category Status Onset Date Resolution Date Last Treatment Date Treating Clinician Comments Source Urinary retention Urinary retention Disease Active 02-22 00:00: 00 Magui pate Urinary incontinen ce Urinary incontinen ce Disease Active 12-15 00:00: 00 Magui pate Bladder outlet obstructio n Bladder outlet obstructio n Disease Active 12-15 00:00: 00 Magui pate Allergies, Adverse Reactions, Alerts Allergy Name Allergy Type Status Severity Reaction(s) Onset Date Inactive Date Treating Clinician Comments Source NO KNOWN ALLERGIE S Drug Class Active Univers [facility] Social History Social Habit Start Date Stop Date Quantity Comments Source Sexual orientation Eddie smith Sesalvadorcarmen - External History of tobacco use Cigarette Smoker Magui Dunawaysalvador carmen - External History of Social function 2024-02-23 00:00:00 2024-02-23 00:00:00 Magui Mary - External Exposure to SARS-CoV-2 (event) 2023-01-01 00:00:00 2023-01-11 17:01:00 Not sure [facility] Sex Assigned At 2000 00:00:00 2000 00:00:00 Magui Mary - External Smoking Status Start Date Stop Date Source Tobacco smoking consumption unknown [facility] Occasional tobacco smoker 2023-12-15 00:00:00 Magui Parra External Medications Ordered Medication Name Filled Medication Name Start Date Stop Date Current Medication? Ordering Clinician Indication Dosage Frequency Signature (SIG) Comments Components Source Amoxicillin -Pot Clavulanate 875-125 MG oral Tablet 12-25 00:00: 00 02-22 00:00 :00 No 1{tbl} Take 1 tablet by mouth 2 times daily. Magui pate TRIMETHOPRI M-SULFAMETH OXAZOLE (Bactrim DS) 800-160 MG oral Tablet 12-21 00:00: 00 02-22 00:00 :00 No [id number] Take 1 tab by mouth twice daily starting the day prior to cystoscopy procedure. . Magui Hoyta rio cefTRIAXone (ROCEPHIN) injection 500 mg 01-12 02:45: 00 01-12 02:16 :00 No 500mg 500 mg, Intramuscu lar, ONCE, 1 dose, On Wed01/11/23 at 2045, MEGHA
Re ason for Anti-Infec tive: Documented Infection< br>Documen quyen Infection Site: Urine
D uration of Therapy: Other (see Comments) [facility] doxycycline hyclate (Vibramycin ) capsule 100 mg 01-12 02:00: 00 01-12 02:16 :00 No 100mg 100 mg, Oral, ONCE, 1 dose, On Wed01/11/23 at 2000, MEGHA
Re ason for Anti-Infec tive: Documented Infection< br>Documen quyen Infection Site: Urine
D uration of Therapy: Other (see Comments) [facility] iopamidol (ISOVUE 370-500 mL) injection 72 mL 01-12 01:15: 00 01-12 01:15 :00 No [id number] 72mL 72 mL, Intravenou s, ONCE, 1 dose, On Wed01/11/23 at 1915, Routine [facility] doxycycline hyclate 100 mg capsule 01-11 00:00: 00 Yes [id number] 100mg Take 1 capsule by mouth in the morning and 1 capsule in the evening. [facility] ibuprofen 800 mg tablet 01-11 00:00: 00 Yes [id number] 800mg Take 1 tablet by mouth every 8 (eight) hours as needed for Pain (scale 4-6). [facility] Immunizations Ordered Immunization Name Filled Immunization Name Date Status Comments Source DTaP Unspecified Unknown Completed Gus ellison Seybold - External DTaP Unspecified Unknown Completed Gus ellison Seybold - External DTaP Unspecified Unknown Completed Gus ellison Seybold - External DTaP Unspecified Unknown Completed Gus ellison Seybold - External DTaP Unspecified Unknown Completed Gus ellison Seybold - External Hepatitis B, Adolescent Or Pediatric Unknown Completed Magui Hernandez - External Hepatitis B, Adolescent Or Pediatric Unknown Completed Magui Cedeñoold - External Hepatitis B, Adolescent Or Pediatric Unknown Completed Magui Hernandez - External HIB- Haemophilus Influenzae Type B Unknown Completed Magui schilling - External HIB- Haemophilus Influenzae Type B Unknown Completed Magui schilling - External HIB- Haemophilus Influenzae Type B Unknown Completed Magui schilling - External HIB- Haemophilus Influenzae Type B Unknown Completed Magui schilling - External Meningococcal Vaccine- Conjugate(Menactra) Unknown Completed Magui rocha - External MMR- Measles, Mumps, Rubella Unknown Completed Magui Seybold - External MMR- Measles, Mumps, Rubella Unknown Completed Magui Seybold - External MMR- Measles, Mumps, Rubella Unknown Completed Magui Seybold - External IPV- Inactivated Polio Vaccine Unknown Completed Magui Seybold - External IPV- Inactivated Polio Vaccine Unknown Completed Magui Seybold - External IPV- Inactivated Polio Vaccine Unknown Completed Magui Seybold - External IPV- Inactivated Polio Vaccine Unknown Completed Magui Seybold - External Tdap- (Boostrix, Adacel) Unknown Completed Magui Seybold - External DTaP Unspecified Unknown Completed Gus sey Seybold - External DTaP Unspecified Unknown Completed Gus sey Seybold - External DTaP Unspecified Unknown Completed Gus sey Seybold - External DTaP Unspecified Unknown Completed Gus sey Seybold - External DTaP Unspecified Unknown Completed Gus sey Seybold - External Hepatitis B, Adolescent Or Pediatric Unknown Completed Magui Seybold - External Hepatitis B, Adolescent Or Pediatric Unknown Completed Magui Seybold - External Hepatitis B, Adolescent Or Pediatric Unknown Completed Magui Seybold - External HIB- Haemophilus Influenzae Type B Unknown Completed Magui Sey bold - External HIB- Haemophilus Influenzae Type B Unknown Completed Magui Dunawayy bold - External HIB- Haemophilus Influenzae Type B Unknown Completed Magui Sey bold - External HIB- Haemophilus Influenzae Type B Unknown Completed Magui Sey bold - External Meningococcal Vaccine- Conjugate(Menactra) Unknown Completed Magui S eybold - External MMR- Measles, Mumps, Rubella Unknown Completed Magui Seybold - External MMR- Measles, Mumps, Rubella Unknown Completed Magui Seybold - External MMR- Measles, Mumps, Rubella Unknown Completed Magui Seybold - External IPV- Inactivated Polio Vaccine Unknown Completed Magui Seybold - External IPV- Inactivated Polio Vaccine Unknown Completed Magui Seybold - External IPV- Inactivated Polio Vaccine Unknown Completed Magui Seybold - External IPV- Inactivated Polio Vaccine Unknown Completed Magui Seybold - External Tdap- (Boostrix, Adacel) Unknown Completed Magui Seybold - External DTaP Unspecified Unknown Completed Gus sey Seybold - External DTaP Unspecified Unknown Completed Gus sey Seybold - External DTaP Unspecified Unknown Completed Gus sey Seybold - External DTaP Unspecified Unknown Completed Gus ellison Seybold - External DTaP Unspecified Unknown Completed Gus ellison Seybold - External Hepatitis B, Adolescent Or Pediatric Unknown Completed Magui Cedeñoold - External Hepatitis B, Adolescent Or Pediatric Unknown Completed Magui Cedeñoold - External Hepatitis B, Adolescent Or Pediatric Unknown Completed Magui Cedeñoold - External HIB- Haemophilus Influenzae Type B Unknown Completed Magui Ellison bold - External HIB- Haemophilus Influenzae Type B Unknown Completed Magui Ellison bold - External HIB- Haemophilus Influenzae Type B Unknown Completed Magui Ellison bold - External HIB- Haemophilus Influenzae Type B Unknown Completed Mgaui Ellison bold - External Meningococcal Vaccine- Conjugate(Menactra) Unknown Completed Magui S eybold - External MMR- Measles, Mumps, Rubella Unknown Completed Magui Cedeñoold - External MMR- Measles, Mumps, Rubella Unknown Completed Magui Cedeñoold - External MMR- Measles, Mumps, Rubella Unknown Completed Magui Hernandez - External IPV- Inactivated Polio Vaccine Unknown Completed Magui Hernandez - External IPV- Inactivated Polio Vaccine Unknown Completed Magui Cedeñoold - External IPV- Inactivated Polio Vaccine Unknown Completed Magui Cedeñoold - External IPV- Inactivated Polio Vaccine Unknown Completed Magui Hernandez - External Tdap- (Boostrix, Adacel) Unknown Completed Magui Hernandez - External Vital Signs Vital Name Observation Time Observation Value Comments S ource Systolic blood pressure 2024-02-23 20:23:00 114 mm[Hg] Magui Cedeñoo ld - External Diastolic blood pressure 2024-02-23 20:23:00 64 mm[Hg] Magui Cedeñoo ld - External Heart rate 2024-02-23 20:23:00 84 /min Gusse moy Seybold - External Body temperature 2024-02-23 20:23:00 36.83 Cherry Magui Dunawayybold - External Respiratory rate 2024-02-23 20:23:00 16 /min Maguieugenia Cedeñoold - External Body height 2024-02-23 20:23:00 170.2 cm Melva annette Seybold - External Body weight 2024-02-23 20:23:00 65.488 kg Melva annette Seybold - External BMI 2024-02-23 20:23:00 22.61 kg/m2 Melva ey Seybold - External Oxygen saturation in Arterial blood by Pulse oximetry 2024-02-23 20:23:00 97 /min Magui Seybo ld - External Systolic blood pressure 2023-12-21 15:04:00 130 mm[Hg] Magui Seybo ld - External Diastolic blood pressure 2023-12-21 15:04:00 78 mm[Hg] Magui Seybo ld - External Heart rate 2023-12-21 15:04:00 56 /min Kelse y Seybold - External Body temperature 2023-12-21 15:04:00 36.94 Cherry Magui Seybold - External Respiratory rate 2023-12-21 15:04:00 17 /min Magui Seybold - External Body height 2023-12-21 15:04:00 170.2 cm Melva ey Seybold - External Body weight 2023-12-21 15:04:00 68.947 kg Melva ey Seybold - External BMI 2023-12-21 15:04:00 23.81 kg/m2 Melva ey Seybold - External Systolic blood pressure 2023-12-15 14:26:00 122 mm[Hg] Magui Seybo ld - External Diastolic blood pressure 2023-12-15 14:26:00 68 mm[Hg] Magui Seybo ld - External Heart rate 2023-12-15 14:26:00 80 /min Kelse y Seybold - External Body temperature 2023-12-15 14:26:00 36.61 Cherry Magui Seybold - External Respiratory rate 2023-12-15 14:26:00 18 /min Magui Seybold - External Body height 2023-12-15 14:26:00 170.2 cm Melva ey Seybold - External Body weight 2023-12-15 14:26:00 68.947 kg Melva ey Seybold - External BMI 2023-12-15 14:26:00 23.81 kg/m2 Melva ey Seybold - External Oxygen saturation in Arterial blood by Pulse oximetry 2023-12-15 14:26:00 98 /min Magui Dunawayybo ld - External Systolic blood pressure 2023-01-12 02:23:00 130 mm[Hg] [facility] Diastolic blood pressure 2023-01-12 02:23:00 82 mm[Hg] [facility] Heart rate 2023-01-12 02:23:00 69 /min [facility] Respiratory rate 2023-01-12 02:23:00 18 /min [facility] Oxygen saturation in Arterial blood by Pulse oximetry 2023-01-12 02:23:00 100 /min [facility] Body temperature 2023-01-11 23:03:00 37.28 Cherry [facility] Body height 2023-01-11 23:03:00 172.7 cm [facility] Body weight 2023-01-11 23:03:00 70.308 kg [facility] BMI 2023-01-11 23:03:00 23.57 kg/m2 [facility] Procedures Procedure Date / Time Performed Performing Clinicia n Source COMP. METABOLIC PANEL (47943) 2023-01-11 23:30:00 Ele Montenegro [facility] CBC WITH DIFF 2023-01-11 23:30:00 [facility] [place] [facility] 2023-01-11 23:30:00 Ele Montenegro [facility] CONSENT/REFUSAL FOR DIAGNOSIS AND TREATMENT 2023-01-11 22:52:38 Doctor Unassigned, [place] [facility] Encounters Start Date/Time End Date/Time Encounter Type Admission Type Attending Clinicians Care Facility Care Department Encounter ID Source 2024-04-07 13:30:00 2024-04-07 13:30:00 Outpatient WELLINGTON KING [id number] Mag[facility] 2024-02-24 00:00:00 2024-02-24 00:00:00 Outpatient ISABEL BROWER [id number] Magui Hernandez 2024-02-23 15:30:00 2024-02-23 15:30:00 Outpatient ISABEL BROWER [id number] Magui Hernandez 2024-02-23 00:00:00 2024-02-23 00:00:00 [facility] [id number] [facility]24-02-02 14:30:00 2024-02-02 14:30:00 Outpatient ISABEL BROWEREUGENIA MYERS [id number] Magui Dunawaycarmen 2024-01-25 09:15:00 2024-01-25 09:15:00 Outpatient WELLINGTON KING MAGUI MYERS [id number] Magui Hernandez 2024-01-12 10:00:00 2024-01-12 10:00:00 Outpatient ISABEL BROWER [facility] MY[facility] [id number] [facility] 2024-01-03 11:30:00 2024-01-03 11:30:00 Outpatient MAGUI MYERS [id number] Mag[facility] 2023-12-29 13:45:00 2023-12-29 13:45:00 Outpatient FRANNIE CARMONA MAGUI MYERS [id number] [facility] 2023-12-29 00:00:00 2023-12-29 00:00:00 Outpatient WELLINGTON KING MAGUI MYERS [id number] [facility] 2023-12-25 00:00:00 2023-12-25 00:00:00 Outpatient WELLINGTON KING MAGUI MYERS [id number] Mag[facility] 2023-12-21 10:20:00 2023-12-21 10:20:00 Outpatient AKOSUA MAGUI [facility] [id number] [facility] 2023-12-21 09:10:00 2023-12-21 09:10:00 Outpatient WELLINGTON KING MAGUI MYERS [id number] [facility] 2023-12-15 08:30:00 2023-12-15 08:30:00 Outpatient ISABEL BROWER MAGUI MYERS [id number] [facility] 2023-01-11 17:05:00 2023-01-11 20:27:00 Emergency PRITI BROOKE [facility] ERT [id number] [facility] 2023-01-11 17:05:00 2023-01-11 20:27:00 Emergency Ele Montenegro Wak[place] S [facility] [id number] [facility] Results Test Description Test Time Test Comments Results Result Co mments Source [facility] WITH [id number] 23:54:09* Test Item Value Reference Range Interpretation [...] 34.0 g/dL 31.2-35.0 RDW-SD (test code = 42403-0) 39.5 fL 38.5-51.6 RDW-CV (test code = 788-0) 11.9 % 12.1-15.4 L PLT (test code = 777-3) 263 See_Comment [Automated messa ge] The system which generated this result transmitted reference range: 150 - 328 10*3/?L. The reference range was not used to interpret this result as normal/abnormal. MPV (test code = 78536-4) 9.0 fL 9.8-13.0 L NRBC/100 WBC (test code = 7540662828) 0.0 See_Comment [Automated me ssage] The system which generated this result transmitted reference range: 0.0 - 10.0 /100 WBCs. The reference range was not used to interpret this result as normal/abnormal. NRBC x10^3 (test code = 3112362153) See_Comment [Automated messa ge] The system which generated this result transmitted reference range: 10*3/?L. The reference range was not used to interpret this result as normal/abnormal. GRAN MAT (NEUT) % (test code = 770-8) 52.0 % IMM GRAN % (test code = 7481461088) 0.30 % LYMPH % (test code = 736-9) 38.1 % MONO % (test code = 5905-5) 7.2 % EOS % (test code = 713-8) 2.0 % BASO % (test code = 706-2) 0.4 % GRAN MAT x10^3(ANC) (test code = 2080482095) 3.71 10*3/uL 1.99-6.95 IMM GRAN x10^3 (test code = 7393285882) 0.00-0.06 LYMPH x10^3 (test code = 731-0) 2.72 10*3/uL 1.09-3.23 MONO x10^3 (test code = 742-7) 0.51 10*3/uL 0.36-1.02 EOS x10^3 (test code = 711-2) 0.14 10*3/uL 0.06-0.53 BASO x10^3 (test code = 704-7) 0.03 10*3/uL 0.01-0.09 Lab Interpretation (test code = 93837-4) Abnormal [facility] Notes Date/Time Note Provider Source 2024-02-23 15:27:24 4Jxf1qq9bZnfeu52jexR vjo4rGU9UftGAQNUU W6fLnTBou2PvHDOtNvJQQ3YDNMa5726-19-79 T15:27:24 Chief ComplaintPatient presents withFollow-upFollow up appointment. Had his urology appointmentShay Davisectronically signed by Cinthya Norton LVN at 02/23/2024 3:27 PM NVB10101-8Cdcgr GasxHR2434-73-89O56:27:37Nurse NoteTXT1.2.840.606483.1.13.131.2.7.2. 653376|[id number] for patient yjur20177-3Lfqvy NoteLNNARRATIVEFormatted C-CDA narrative textOutagamie County Health Center2727 [facility] [id number] 7985-84-19E41:27:371.2.840.013558.1.7 2.3.15|1.2.840.596058.1.13.131.2.7.2. [id number] [facility] 2023-12-21 09:05:52 oaj5LauhJ1BXSg0qo1dE FrYljJ5sOUrLV9jTV Nvi6t/SGi1EiJbendxuE2KPTdHv3575-45-53 T09:05:52 Chief ComplaintPatient presents withUrinary RetentionUrinary retentionTasia MOSESA 74076-7Wywnz RgliLQ5651-40-17Y32:06:00Nurse NoteTXT1.2.840.863998.1.13.131.2.7.2. 695422|[id number] for patient lpzr51637-8Tqpxa NoteLNNARRATIVEFormatted C-CDA narrative textOutagamie County Health Center2727 [facility] [id number] 0345-37-94R88:06:001.2.840.393238.1.7 2.3.15|1.2.840.045481.1.13.131.2.7.2. [id number] [facility] 2023-12-15 08:20:39 kUlQ8fBYI/KclLFo9rK4 Si5qfM8UXTdYSpbpF QPUVLNkAO6+b0NpEkbnFzCrZgnk5715-72-69 T08:20:39 Chief ComplaintPatient presents withNew PatientEstablish CareUrinary retentionPaula JADA MonahanN 68067-0Nlctf HxqgVC3039-32-68S12:20:52Nurse NoteTXT1.2.840.943320.1.13.131.2.7.2. 897286|[id number] for patient zlwp15416-0Quvec NoteLNNARRATIVEFormatted C-CDA narrative textOutagamie County Health Center2727 [facility].[id number] 0168-21-46T45:20:521.2.840.963836.1.7 2.3.15|1.2.840.082156.1.13.131.2.7.2. [id number] [facility]"
[2024-02-24] MEDS ORDERED: DIAZEPAM 10 MG/2 ML INJ SYRINGE ONE (14:58)
[2024-02-24] MEDS ORDERED: ONDANSETRON 4 MG/2 ML VIAL ONE (15:27)
[2024-02-24] MEDS ORDERED: MAGNESIUM SULFATE 1 gm IVPB 1 GM/100 ML BAG IV ONE (15:28)
[2024-02-24] MEDS ORDERED: MORPHINE 4 MG/ML SYR ONE (15:28)
[2024-02-24 15:38] LABS: Absolute Monocytes 0.4 K/uL (0.1-1.3); Absolute Neutrophil 5.8 K/uL (1.8-8.0); Basophils % 0.4 % (0-1.3); Eosinophils % 0.4 % (0-4.4); Hematocrit 39.4 % (39.6-49.0); Hemoglobin 13.6 g/dL (13.6-17.9); Lymphocytes % 23.7 % (15.3-44.8); MCH 30.4 pg (27.0-35.0); MCHC 34.4 g/dL (32.0-36.0); MCV 88.4 fL (80-100); MPV 7.4 fL (7.6-11.3); Monocytes % 4.9 % (3.3-12.3); Neutrophils % 70.6 % (41.7-73.7); Platelets 266 thou/uL (152-406); RBC Red Blood Cell Count 4.46 M/uL (4.33-5.43)
[2024-02-24 15:49] LABS: Anion Gap 9.4 mEq/L (5.0-15.0); Potassium 3.4 mEq/L (3.5-5.1)
--- NOTE | 2024-02-24 18:01 | RAD REPORT ---
EXAM DESCRIPTION: CT - Abdomen Pelvis W Contrast - 02/24/2024 4:49 pm CLINICAL HISTORY: urinary retention COMPARISON: Abdomen Pelvis W Contrast dated 06/27/2016 TECHNIQUE: Thin cut axial CT imaging of the abdomen and pelvis was performed following intravenous a dministration of 100 mL Isovue 300. Multiplanar reformats were generated and reviewed. All CT scans are performed using dose optimization technique as appropriate and may include automated exposure control or mA/KV adjustment according to patient size. FINDINGS: No suspicious findings in the lung bases. The liver, spleen, adrenal glands, and pancreas show no suspicious findings. Gallbladder and biliary tree are also without suspicious finding. Symmetric renal function is seen with no suspicious renal mass. No radiopaque calculi. Bilateral mode rate hydroureteronephrosis, with ureteral dilation to the level of the present ureteral junctions. On a delayed phase, there is opacification of the right ureter, with patency of the right vesicouretera l junction. Somewhat delayed opacification of the left ureter limits evaluation. No dilated bowel loops or bowel wall thickening. No free air, free fluid or inflammatory stranding. N o hernia, mass or bulky lymphadenopathy. The urinary bladder is markedly distended with wall trabecul ation and a small diverticulum anterosuperiorly. Somewhat patulous appearance at the bladder neck, pl ease correlate with history of prior prostatectomy. No suspicious bony findings. IMPRESSION: Moderate bilateral hydroureteronephrosis. Marked bladder distention with wall trabeculat ion and a small diverticulum. Findings to retrograde reflux. No obstructing calculi.
[2024-02-24 18:15] LABS: Specific Gravity > 1.030 (1.005-1.030); Sqamous Epithelial None Seen /HPF (None Seen); Urine Bacteria None Seen /HPF (<20); Urine Bilirubin NEGATIVE (Negative); Urine Blood Negative (Negative); Urine Clarity Clear (Clear); Urine Color Colorless (Yellow); Urine Culture Reflex Order NOT NEEDED; Urine Glucose NEGATIVE (Negative); Urine Ketones NEGATIVE (Negative); Urine Micro Reflex YN NO BILL MICROSCOPIC; Urine Nitrite NEGATIVE (Negative); Urine Protein NEGATIVE (Negative); Urine RBC <5 /HPF (None Seen); Urine Urobilinogen Normal (Normal); Urine WBC <5 /HPF (<5)
--- NOTE | 2024-02-24 18:21 | ER ---
Nurse's Notes [facility] Name: Robbi Perez Age: 23 yrs Sex: Male : 2000 Arrival Date: 02/24/2024 Time: 14:22 Bed 15 Private MD: Diagnosis: acute urinary retention, resolved Presentation: 02/23 14:31 Chief complaint: Patient states: hasn't been able to pee this morning, just drops, has ko1 been seen for this before, has appt with urology for a procedure. Coronavirus screen: At this time, the client does not indicate any symptoms associated with coronavirus-19. Ebola Screen: No symptoms or risks identified at this time. Initial Sepsis Screen: Does the patient meet any 2 criteria? No. Patient's initial sepsis screen is negative. Does the patient have a suspected source of infection? No. Patient's initial sepsis screen is negative. Risk Assessment: Do you want to hurt yourself or someone else? Patient reports no desire to harm self or others. Onset of symptoms was February 24, 2024. 14:31 Method Of Arrival: Ambulatory ko1 14:31 Acuity: MATILDE 3 ko1 Triage Assessment: 14:32 General: Appears distressed, uncomfortable, Behavior is cooperative, appropriate for ko1 age, anxious. Pain: Complains of pain in pelvis. Historical: - Allergies: 14:32 No Known Allergies; ko1 - Home Meds: 14:32 None [Active]; ko1 - PMHx: 14:32 urinary problems; ko1 - PSHx: 14:32 None; ko1 - Immunization history:: Adult Immunizations up to date. - Social history:: Smoking status: Patient denies any tobacco usage or history of. Screenin:07 [facility] [place] ED Fall Risk Assessment (Adult) History of falling in the last 3 months, me1 including since admission No falls in past 3 months (0 pts) Confusion or Disorientation No (0 pts) Intoxicated or Sedated No (0 pts) Impaired Gait No (0 pts) Mobility Assist Device Used No (0 pt) Altered Elimination No (0 pt) Score/Fall Risk Level 0 - 2 = Low Risk Maintained a safe environment, Provided non-skid footwear, Hourly rounding (assess needs \T\ fall precautionary measures) done. Abuse screen: Denies threats or abuse. Nutritional screening: No deficits noted. Tuberculosis screening: No symptoms or risk factors identified. Assessment: 15:02 General: Pt has 745 CC of urine on the bladder scanner . kd3 15:07 General: Appears uncomfortable, well groomed, well developed, well nourished, Behavior me1 is calm, cooperative, appropriate for age, Reports hasn't been able to pee this morning, just drops, has been seen for this before, has appt with urology for a procedure. Pain: Complains of pain in pelvis Pain does not radiate. Pain currently is 6 out of 10 on a pain scale. Quality of pain is described as pressure, Pain began 9 am Is continuous. Neuro: Level of Consciousness is awake, alert, obeys commands, Oriented to person, place, time, situation, Appropriate for age. Cardiovascular: Patient's skin is warm and dry. Respiratory: Respiratory effort is even, unlabored, Respiratory pattern is regular, symmetrical. GI: No signs and/or symptoms were reported involving the gastrointestinal system. : Reports inability to void, since 9 am. EENT: No signs and/or symptoms were reported regarding the EENT system. Derm: Skin is intact, is healthy with good turgor, Skin is pink, warm \T\ dry. Musculoskeletal: No signs and/or symptoms reported regarding the musculoskeletal system. 16:00 Reassessment: Patient and/or family updated on plan of care and expected duration. Pain me1 level reassessed. Patient is alert, oriented x 3, equal unlabored respirations, skin warm/dry/pink. Vital Signs: 14:31 BP 153 / 106; Pulse 85; Resp 15; Temp 98.6; Pulse Ox 100% ; ko1 15:12 BP 157 / 106; Pulse 107; Resp 16; Pulse Ox 100% on R/A; me1 15:15 BP 147 / 79; Pulse 78; Resp 16; Pulse Ox 99% on R/A; me1 16:00 BP 131 / 89; Pulse 71; Resp 16; Pulse Ox 98% ; me1 16:57 Pain 3/10; me1 17:12 BP 143 / 91; Pulse 77; Resp 16; Pulse Ox 100% on R/A; me1 18:00 BP 139 / 95; Pulse 76; Resp 16; Pulse Ox 99% on R/A; me1 18:35 BP 132 / 85; Pulse 71; Resp 16; Temp 98.2(O); Pulse Ox 100% on R/A; me1 16:57 Pain Scale: Adult me1 ED Course: 14:24 Patient arrived in ED. mr 14:25 Marina Amaya PA-C is PHCP. sb4 14:25 Stan Kirby MD is Attending Physician. sb4 14:32 Triage completed. ko1 14:32 Arm band placed on right wrist. Patient placed in an exam room, on a stretcher, on ko1 pulse oximetry, Patient notified of wait time. 14:43 Jennifer Yates, RN is Primary Nurse. me1 15:07 Patient has correct armband on for positive identification. Bed in low position. Call me1 light in reach. Side rails up X 1. Provided Education on: POC. Verbalized understanding. . Client placed on continuous cardiac and pulse oximetry monitoring. NIBP monitoring applied. Pulse ox on. NIBP on. 15:07 No provider procedures requiring assistance completed. me1 15:25 Initial lab(s) drawn, by me, sent to lab. Inserted saline lock: 22 gauge in right me1 antecubital area, using aseptic technique. 16:51 CT Abd/Pelvis - IV Contrast Only In Process Unspecified. EDMS 17:47 Urine collected: clean catch specimen, cloudy. me1 17:48 UAM Sent. me1 18:36 IV discontinued, intact, bleeding controlled, No redness/swelling at site. Pressure me1 dressing applied. Administered Medications: 14:57 CANCELLED (Other Intervention Used): hydrocodone-acetaminophen(7.5 mg-325 mg) 1 tabs PO sb4 once 15:02 Drug: Diazepam IM 5 mg IM once Route: IM; Site: right gluteus; kd3 15:35 Follow up: Response: No adverse reaction me1 15:34 Drug: morphine IVP or IV 4 mg IVP once over 4 mins Route: IVP; Infused Over: 4 mins; me1 Site: right antecubital; 16:57 Follow up: Pain 3/10 Adult; Response: No adverse reaction; Pain is decreased me1 15:35 Drug: Magnesium Sulfate IVPB 1 grams IVPB once over 1 hrs Route: IVPB; Infused Over: 1 me1 hrs; Site: right antecubital; 16:58 Follow up: Response: No adverse reaction; IV Status: Completed infusion; IV Intake: me1 100ml 15:35 Drug: Ondansetron IVP 4 mg IVP once; over 2 minutes Route: IVP; Site: right antecubital;me1 16:57 Follow up: Response: No adverse reaction; Nausea is decreased me1 Medication: 15:07 VIS not applicable for this client. me1 Intake: 16:58 IV: 100ml; Total: 100ml. me1 17:27 also reports voiding while in CT me1 Output: 17:27 Urine: 425ml (Voided); Total: 425ml. me1 17:30 Urine: 100ml (Voided); Total: 525ml. me1 17:27 also reports voiding while in CT me1 Outcome: 18:20 Discharge ordered by . sb4 18:36 Discharged to home ambulatory, me1 18:36 Condition: stable 18:36 Discharge instructions given to patient, Instructed on discharge instructions, follow up and referral plans. Demonstrated understanding of instructions, follow-up care, 18:37 Patient left the ED. me1 Signatures: Dispatcher [employer] EDVT TothSimona arreguin, Reg Reg mr Lissy Evans, RN RN kd3 Cynthia London RN RN ko1 Marina Amaya PAAidaC PA-C sb4 Jennifer Yates, JORGE RN me1 Corrections: (The following items were deleted from the chart) 14:37 14:31 Chief complaint: Patient states: hasn't been able to pee this morning, just ko1 drops, ko1 15:06 14:31 Chief complaint: Patient states: hasn't been able to pee this morning, just me1 drops, has been seen for this before, has appt with urology for a procedure. ko1
--- NOTE | 2024-02-24 18:21 | EDPHYS ---
Physician Documentation [facility] Name: Robbi Perez Age: 23 yrs Sex: Male : 2000 Arrival Date: 02/24/2024 Time: 14:22 Bed 15 Private MD: ED Physician Stan Kirby HPI: 02/23 14:40 This 23 yrs old Male presents to ER via Ambulatory with complaints of Urinary sb4 retention. 14:40 The patient presents with urinary symptoms, unable to void. Onset: The symptoms/episode sb4 began/occurred this morning. Modifying factors: The symptoms are alleviated by nothing, the symptoms are aggravated by nothing. Associated signs and symptoms: The patient has no apparent associated signs or symptoms. The patient has experienced similar episodes in the past, a few times. The patient has been recently seen by a physician: a urologist, with similar presenting complaints. Patient states that he has chronic issues with urinary retention/incontinence but states that today he has not been able to void at all and is extremely uncomfortable. He is currently seeing a urologist in [place], had an unremarkable ultrasound, and is awaiting further diagnostics. He is not currently on any medications for this issue. Historical: - Allergies: 14:32 No Known Allergies; ko1 - Home Meds: 14:32 None [Active]; ko1 - PMHx: 14:32 urinary problems; ko1 - PSHx: 14:32 None; ko1 - Immunization history:: Adult Immunizations up to date. - Social history:: Smoking status: Patient denies any tobacco usage or history of. ROS: 14:40 Constitutional: Negative for fever, chills, and weight loss, sb4 14:40 : Positive for difficulty urinating, 14:40 All other systems are negative, Exam: 14:40 Head/Face: Normocephalic, atraumatic. Eyes: Extra-ocular motions intact. Periorbital sb4 areas with no swelling, redness, or edema. ENT: Mucous membranes moist. Cardiovascular: Regular rate and rhythm with a normal S1 and S2. Respiratory: Lungs have equal breath sounds bilaterally, clear to auscultation and percussion. No rales, rhonchi or wheezes noted. No increased work of breathing, no retractions or nasal flaring. Abdomen/GI: Soft, non-tender, no distension. Skin: Warm, dry with normal turgor. Normal color with no rashes, no lesions, and no evidence of cellulitis. MS/ Extremity: Pulses equal, no cyanosis. Neurovascular intact. Full, normal range of motion. Neuro: Awake and alert, GCS 15, oriented to person, place, time, and situation. Motor strength 5/5 in all extremities. Sensory grossly intact. 14:40 Constitutional: The patient appears alert, awake, uncomfortable, Vital Signs: 14:31 BP 153 / 106; Pulse 85; Resp 15; Temp 98.6; Pulse Ox 100% ; ko1 15:12 BP 157 / 106; Pulse 107; Resp 16; Pulse Ox 100% on R/A; me1 15:15 BP 147 / 79; Pulse 78; Resp 16; Pulse Ox 99% on R/A; me1 16:00 BP 131 / 89; Pulse 71; Resp 16; Pulse Ox 98% ; me1 16:57 Pain 3/10; me1 17:12 BP 143 / 91; Pulse 77; Resp 16; Pulse Ox 100% on R/A; me1 18:00 BP 139 / 95; Pulse 76; Resp 16; Pulse Ox 99% on R/A; me1 18:35 BP 132 / 85; Pulse 71; Resp 16; Temp 98.2(O); Pulse Ox 100% on R/A; me1 16:57 Pain Scale: Adult me1 MDM: 14:30 Patient medically screened. sb4 14:47 ED course: abdominal CT from 11/25/23 showed "Mild prominence of the left renal pelvis sb4 and proximal to mid left ureter, without evidence of obstructing calculi. Markedly distended bladder with mild diffuse bladder wall thickening. Findings may relate to a recently passed stone or sequelae of longstanding bladder outlet obstruction with reflux along the left ureter. Please correlate clinically.". 18:19 Data reviewed: vital signs, nurses notes, lab test result(s), radiologic studies, and sb4 as a result, I will discharge patient. Counseling: I had a detailed discussion with the patient and/or guardian regarding the historical points, exam findings, and any diagnostic results supporting the discharge/admit diagnosis, lab results, radiology results, the need for outpatient follow up, a urologist, to return to the emergency department if symptoms worsen or persist or if there are any questions or concerns that arise at home. 02/23 14:26 Order name: UAM; Complete Time: 18:17 sb4 02/23 15:18 Order name: CBC with Diff; Complete Time: 15:40 sb4 02/23 15:18 Order name: BMP; Complete Time: 15:53 sb4 02/23 16:28 Order name: CT Abd/Pelvis - IV Contrast Only; Complete Time: 18:02 sb4 02/23 14:40 Order name: Bladder Scanner; Complete Time: 15:02 sb4 02/23 15:18 Order name: IV Start; Complete Time: 15:25 sb4 Administered Medications: 14:57 CANCELLED (Other Intervention Used): hydrocodone-acetaminophen(7.5 mg-325 mg) 1 tabs PO sb4 once 15:02 Drug: Diazepam IM 5 mg IM once Route: IM; Site: right gluteus; kd3 15:35 Follow up: Response: No adverse reaction me1 15:34 Drug: morphine IVP or IV 4 mg IVP once over 4 mins Route: IVP; Infused Over: 4 mins; me1 Site: right antecubital; 16:57 Follow up: Pain 3/10 Adult; Response: No adverse reaction; Pain is decreased me1 15:35 Drug: Magnesium Sulfate IVPB 1 grams IVPB once over 1 hrs Route: IVPB; Infused Over: 1 me1 hrs; Site: right antecubital; 16:58 Follow up: Response: No adverse reaction; IV Status: Completed infusion; IV Intake: me1 100ml 15:35 Drug: Ondansetron IVP 4 mg IVP once; over 2 minutes Route: IVP; Site: right antecubital;me1 16:57 Follow up: Response: No adverse reaction; Nausea is decreased me1 Disposition Summary: 02/24/24 18:20 Discharge Ordered Notes: Location: Home sb4 Problem: new sb4 Symptoms: are resolved sb4 Condition: Stable sb4 Diagnosis - acute urinary retention, resolved sb4 Followup: sb4 - With: Private Physician - When: As needed - Reason: Further diagnostic work-up, Recheck today's complaints, Re-evaluation by your physician Discharge Instructions: - Discharge Summary Sheet sb4 - Acute Urinary Retention, Male, [place]-Urbi sb4 Forms: - Work release form sb4 - Thank You Letter sb4 - Patient Portal Instructions sb4 - Leadership Thank You Letter sb4 Signatures: Dispatcher [employer] Lissy Levi RN RN kd3 Cynthia London RN RN john1 Marina Amaya PA-C PA-C sb4 Jennifer Yates RN RN me1 Corrections: (The following items were deleted from the chart) 14:57 14:40 Hydrocodone-Acetaminophen PO (7.5 mg-325 mg) 1 tabs PO once ordered. sb4 sb4
[2024-02-24 19:16] VITALS: BP 132/85; TEMP 98.2; O2SAT 100
== END 2024-02-24 18:37 | disposition home or self-care (01) ==
LOC: ER 14:22
DX: R33.9 Retention of urine, unspecified (principal)
CPT/HCPCS: 96365; 85025; 81001; 80048; 36415; 74177; 96375; 96372; 99284; Q9967; J3475; J3360; J2405

== ENCOUNTER 2024-02-29 17:11 | Emergency (ER) | payer BC ==
--- OUTSIDE RECORDS SUMMARY | 2024-02-29 17:15 | XMS REPORT | Continuity of Care Document ---
Author Name Unknown Address [address] [place] [address] [facility] thconnect Address [address] [place] [address] Care Team Providers Care Roustabout Hand Name Role Phone PCP, PATIENT DOES NOT HAVE A Primary Care Physic juice Unavailable WELLINGTON KING Attending Clinician Unavailable ISABEL BROWER Attending Clinician Unavailab FRANNIE Stevenson Attending Clinician Unavailable [facility] Attending Clinician Unavailable PRITI JAMES Attending Clinician Unavailable Ele Montenegro MD Attending Clinician [phone] Priti James MD Attending Clinician ELE MONTENEGRO Admitting Clinician Unavailabl e Payers Payer Name Policy Type Policy Number Effective Date Expirati on Date Source BC 2 [id number] 2023 00:00:00 [facility] [id number] 2022 00:00:00 Problems Condition Name Condition Details [...] KNOWN ALLERGIE S Drug Class Active [facility] Social History Social Habit Start Date Stop Date Quantity Comments Source Sexual orientation Eddie smith Sesalvadorcarmen - External History of tobacco use Cigarette Smoker Magui Dunaawysalvador carmen - External History of Social function 2024-02-23 00:00:00 2024-02-23 00:00:00 Magui Mary - External Exposure to SARS-CoV-2 (event) 2023-01-01 00:00:00 2023-01-11 17:01:00 Not sure [facility] Sex Assigned At 2000 00:00:00 2000 00:00:00 Magui Mary - External Smoking Status Start Date Stop Date Source Tobacco smoking consumption unknown [facility] Occasional tobacco smoker 2023-12-15 00:00:00 Magui Parra [...] 12-21 00:00: 00 02-22 00:00 :00 No [id number] Take 1 tab by mouth twice daily starting the day prior to cystoscopy procedure. . Magui Hoyta rio cefTRIAXone (ROCEPHIN) injection 500 mg 01-12 02:45: 00 01-12 02:16 :00 No 500mg 500 mg, Intramuscu lar, ONCE, 1 dose, On Wed01/11/23 at 2045, MEGHA
Re ason for Anti-Infec tive: Documented Infection< br>Documen quyen Infection Site: Urine
D uration of Therapy: Other (see Comments) [facility] doxycycline hyclate (Vibramycin ) capsule 100 mg 01-12 02:00: 00 01-12 02:16 :00 No 100mg 100 mg, Oral, ONCE, 1 dose, On Wed01/11/23 at 2000, MEGHA
Re ason for Anti-Infec tive: Documented Infection< br>Documen quyen Infection Site: Urine
D uration of Therapy: Other (see Comments) [facility] iopamidol (ISOVUE 370-500 mL) injection 72 mL 01-12 01:15: 00 01-12 01:15 :00 No [id number] 72mL 72 mL, Intravenou s, ONCE, 1 dose, On Wed01/11/23 at 1915, Routine [facility] doxycycline hyclate 100 mg capsule 01-11 00:00: 00 Yes [id number] 100mg Take 1 capsule by mouth in the morning and 1 capsule in the evening. [facility] ibuprofen 800 mg tablet 01-11 00:00: 00 Yes [id number] 800mg Take 1 tablet by mouth every 8 (eight) hours as needed for Pain (scale 4-6). [facility] Immunizations Ordered Immunization Name Filled Immunization [...] Unknown Completed Magui Ellison bold - External Meningococcal Vaccine- Conjugate(Menactra) [...] Systolic blood pressure 2023-01-12 02:23:00 130 mm[Hg] [facility] Diastolic blood pressure 2023-01-12 02:23:00 82 mm[Hg] [facility] Heart rate 2023-01-12 02:23:00 69 /min [facility] Respiratory rate 2023-01-12 02:23:00 18 /min [facility] Oxygen saturation in Arterial blood by Pulse oximetry 2023-01-12 02:23:00 100 /min [facility] Body temperature 2023-01-11 23:03:00 37.28 [facility] Body height 2023-01-11 23:03:00 172.7 cm [facility] Body weight 2023-01-11 23:03:00 70.308 kg [facility] BMI 2023-01-11 23:03:00 23.57 kg/m2 [facility] Procedures Procedure Date / Time Performed Performing Clinicia n Source COMP. METABOLIC PANEL (53412) 2023-01-11 23:30:00 Ele Montenegro [facility] CBC WITH DIFF 2023-01-11 23:30:00 [facility] 2023-01-11 23:30:00 Ele Montenegro [facility] CONSENT/REFUSAL FOR DIAGNOSIS AND TREATMENT 2023-01-11 22:52:38 Doctor Unassigned, [place] [facility] Encounters Start Date/Time End Date/Time Encounter Type Admission Type Attending Clinicians Care Facility Care Department Encounter ID Source 2024-04-07 13:30:00 2024-04-07 13:30:00 Outpatient WELLINGTON KING [id number] Mag[facility] 2024-02-24 00:00:00 2024-02-24 00:00:00 Outpatient ISABEL BROWER [id number] Magui Hernandez 2024-02-23 15:30:00 2024-02-23 15:30:00 Outpatient ISABEL BROWER [id number] Mag[facility] Hernandez 2024-02-23 00:00:00 2024-02-23 00:00:00 Outpatient [facility] [id number] [facility] 2024-02-02 14:30:00 2024-02-02 14:30:00 Outpatient ISABEL BROWEREUGENIA MYERS [id number] Magui Dunawaycarmen 2024-01-25 09:15:00 2024-01-25 09:15:00 Outpatient WELLINGTON KING MAGUI MYERS [id number] Magui Hernandez 2024-01-12 10:00:00 2024-01-12 10:00:00 Outpatient ISABEL BROWER MAGUI MYERS [id number] [facility] 2024-01-03 11:30:00 2024-01-03 11:30:00 Outpatient MAGUI MYERS [id number] Magui [facility] 2023-12-29 13:45:00 2023-12-29 13:45:00 Outpatient FRANNIE CARMONA MAGUI MYERS [id number] Mag[facility] 2023-12-29 00:00:00 2023-12-29 00:00:00 Outpatient WELLINGTON KING MAGUI MYERS [id number] [facility] 2023-12-25 00:00:00 2023-12-25 00:00:00 Outpatient WELLINGTON KING MAGUI MYERS [id number] Mag[facility] 2023-12-21 10:20:00 2023-12-21 10:20:00 Outpatient AKOSUA MAGUI MAGUI [id number] [facility] 2023-12-21 09:10:00 2023-12-21 09:10:00 Outpatient WELLINGTON KING MAGUI MYERS [id number] [facility] 2023-12-15 08:30:00 2023-12-15 08:30:00 Outpatient ISABEL BROWER MAGUI MYERS [id number] [facility] 2023-01-11 17:05:00 2023-01-11 20:27:00 Emergency PRITI BROOKE [facility] ERT [id number] [facility] 2023-01-11 17:05:00 2023-01-11 20:27:00 Emergency Ele Montenegro [place] [facility] [id number] [facility] Results Test Description Test Time Test Comments Results Result Co mments Source [facility] WITH [id number] 23:54:09* Test Item Value Reference Range Interpretation [...] 34.0 g/dL 31.2-35.0 RDW-SD (test code = 05752-7) 39.5 fL 38.5-51.6 RDW-CV (test code = 788-0) 11.9 % 12.1-15.4 L PLT (test code = 777-3) 263 See_Comment [Automated messa ge] The system which generated this result transmitted reference range: 150 - 328 10*3/?L. The reference range was not used to interpret this result as normal/abnormal. MPV (test code = 38790-0) 9.0 fL 9.8-13.0 L NRBC/100 WBC (test code = 9290772091) 0.0 See_Comment [Automated me ssage] The system which generated this result transmitted reference range: 0.0 - 10.0 /100 WBCs. The reference range was not used to interpret this result as normal/abnormal. NRBC x10^3 (test code = 8259720807) See_Comment [Automated messa ge] The system which generated this result transmitted reference range: 10*3/?L. The reference range was not used to interpret this result as normal/abnormal. GRAN MAT (NEUT) % (test code = 770-8) 52.0 % IMM GRAN % (test code = 2849048755) 0.30 % LYMPH % (test code = 736-9) 38.1 % MONO % (test code = 5905-5) 7.2 % EOS % (test code = 713-8) 2.0 % BASO % (test code = 706-2) 0.4 % GRAN MAT x10^3(ANC) (test code = 1068031636) 3.71 10*3/uL 1.99-6.95 IMM GRAN x10^3 (test code = 7788632241) 0.00-0.06 LYMPH x10^3 (test code = 731-0) 2.72 10*3/uL 1.09-3.23 MONO x10^3 (test code = 742-7) 0.51 10*3/uL 0.36-1.02 EOS x10^3 (test code = 711-2) 0.14 10*3/uL 0.06-0.53 BASO x10^3 (test code = 704-7) 0.03 10*3/uL 0.01-0.09 Lab Interpretation (test code = 64099-0) Abnormal [facility] Notes Date/Time Note Provider Source 2024-02-23 15:27:24 2Qcf8xl2gKving52asdQ mmj1tEQ7ZtqSBNZMQ Q6rFiMNlj7JxYJPkTdNAX0GOREq3329-41-33 T15:27:24 Chief ComplaintPatient presents withFollow-upFollow up appointment. Had his urology appointmentShay Davisectronically signed by Cinthya Norton LVN at 02/23/2024 3:27 PM SFJ22399-5Bhycv RuoeUV4288-85-32C68:27:37Nurse NoteTXT1.2.840.433240.1.13.131.2.7.2. 059218|[id number] for patient gmrh25591-4Lpnpc NoteLNNARRATIVEFormatted C-CDA narrative textRogers [facility] Hospital - [place] [facility] [id number] 0150-00-20G42:27:371.2.840.132493.1.7 2.3.15|1.2.840.149977.1.13.131.2.7.2. [id number] [facility] 2023-12-21 09:05:52 hdh1PerwT2LEIb7fb7hD NcLqlF9xHRfOT0hQX Nvi6t/SYt5CiAsafkmlO6CAVvUj9537-69-23 T09:05:52 Chief ComplaintPatient presents withUrinary RetentionUrinary retentionTasia MOSESA 50932-0Htjcn UcqqNQ4437-29-72E11:06:00Nurse NoteTXT1.2.840.828170.1.13.131.2.7.2. 708301|[id number] for patient ddrn98932-3Bykwf NoteLNNARRATIVEFormatted C-CDA narrative textRogers Memorial Hospital - [place]2727 [facility] [id number] 9722-78-75K86:06:001.2.840.569665.1.7 2.3.15|1.2.840.089282.1.13.131.2.7.2. [id number] [facility] 2023-12-15 08:20:39 aSsS6xLWT/UcrEYa5uF8 Su9gdP2ABPyWNigsE QPUVLNkAO6+c9CnXmvzKwEtGaof8694-64-08 T08:20:39 Chief ComplaintPatient presents withNew PatientEstablish CareUrinary retentionPaula JADA MonahanN 32198-4Fgegm QkoaZF3583-21-72V54:20:52Nurse NoteTXT1.2.840.946775.1.13.131.2.7.2. 815415|[id number] for patient rdcg79714-8Tefzr NoteLNNARRATIVEFormatted C-CDA narrative textRogers Memorial Hospital - [place]2727 [facility].[id number] 4162-70-39A88:20:521.2.840.966460.1.7 2.3.15|1.2.840.877058.1.13.131.2.7.2. [id number] [facility]"
--- NOTE | 2024-02-29 18:58 | EDPHYS ---
Physician Documentation [facility] Name: Robbi Perez Age: 23 yrs Sex: Male : 2000 Arrival Date: 02/29/2024 Time: 17:11 Bed IW1 Private MD: ED Physician Valentin Mcintyre HPI: 02/28 19:04 This 23 yrs old Male presents to ER via Ambulatory with complaints of urinary sb4 retention. 19:05 The patient presents with urinary symptoms, unable to void. Onset: The symptoms/episode sb4 began/occurred today. Modifying factors: The symptoms are alleviated by nothing, the symptoms are aggravated by nothing. Associated signs and symptoms: The patient has no apparent associated signs or symptoms. The patient has experienced similar episodes in the past, a few times, but today's symptoms are not as bad as this previous episode. The patient has been recently seen at the [facility] Emergency Department, last week, for similar complaints labs were performed, CT scan was performed, Previous workup normal. Historical: - Allergies: 17:42 No Known Allergies; nj1 - PMHx: 17:42 urinary problems; nj1 - Immunization history:: Client reports having NOT received the Covid vaccine. - Infectious Disease History:: Denies. - Social history:: Smoking status: Reported history of juuling and/or vaping. ROS: 19:05 Constitutional: Negative for fever, chills, and weight loss, sb4 19:05 : Positive for difficulty urinating, 19:05 All other systems are negative, Exam: 19:05 Constitutional: This is a well developed, well nourished patient who is awake, alert, sb4 and in no acute distress. Head/Face: Normocephalic, atraumatic. Eyes: Extra-ocular motions intact. Periorbital areas with no swelling, redness, or edema. ENT: Mucous membranes moist. Cardiovascular: Regular rate and rhythm with a normal S1 and S2. Respiratory: Lungs have equal breath sounds bilaterally, clear to auscultation and percussion. No rales, rhonchi or wheezes noted. No increased work of breathing, no retractions or nasal flaring. Abdomen/GI: Soft, non-tender, no distension. Skin: Warm, dry with normal turgor. Normal color with no rashes, no lesions, and no evidence of cellulitis. MS/ Extremity: Pulses equal, no cyanosis. Neurovascular intact. Full, normal range of motion. Neuro: Awake and alert, GCS 15, oriented to person, place, time, and situation. Motor strength 5/5 in all extremities. Sensory grossly intact. Vital Signs: 17:41 BP 144 / 104; Pulse 76; Resp 18; Temp 98(TE); Pulse Ox 100% ; Weight 66.22 kg; Height 5 nj1 ft. 7 in. ; Pain 6/10; 17:41 Body Mass Index 22.87 (66.22 kg, 170.18 cm) nj1 17:41 Pain Scale: Adult nj1 MDM: 17:47 Patient medically screened. sb4 19:05 Data reviewed: vital signs, nurses notes, and as a result, I will discharge patient. ED sb4 course: patient able to urinate after triage while waiting in lobby, feels better, requesting to be discharged. Administered Medications: No medications were administered Disposition Summary: 02/29/24 18:57 Discharge Ordered Notes: Location: Home sb4 Problem: new sb4 Symptoms: are resolved sb4 Condition: Stable sb4 Diagnosis - acute urinary retention - resolved sb4 Followup: sb4 - With: Omega Faria MD - When: As needed - Reason: Recheck today's complaints, Re-evaluation by your physician Forms: - Medication Reconciliation Form sb4 - Thank You Letter sb4 - Antibiotic Education sb4 - Prescription Opioid Use sb4 - Patient Portal Instructions sb4 - Leadership Thank You Letter sb4 Addendum: 03/02/2024 09:21 I was immediately available for consultation during this patient's visit. I did not e c2 personally see the patient or discuss the patient with the SOO. . Signatures: Marina Amaya PA-C PA-C sb4 Corry Howard RN RN nj1 Valentin Mcintyre MD MD ec2 Corrections: (The following items were deleted from the chart) 02/28 19:27 17:47 Bladder Scanner ordered. sb4 sb4
--- NOTE | 2024-02-29 18:58 | ER ---
Nurse's Notes [facility] Name: Robbi Perez Age: 23 yrs Sex: Male : 2000 Arrival Date: 02/29/2024 Time: 17:11 Bed IW1 Private MD: Diagnosis: acute urinary retention - resolved Presentation: 02/28 17:41 Chief complaint: Patient states: Unable to urinate, just "dripping". Had similar nj1 episode last week, sent home, has fu appointment with urologist in 2 months. Coronavirus screen: Vaccine status: Patient reports being unvaccinated. Ebola Screen: Patient denies travel to an Ebola-affected area in the 21 days before illness onset. Initial Sepsis Screen: Does the patient meet any 2 criteria? No. Patient's initial sepsis screen is negative. Does the patient have a suspected source of infection? No. Patient's initial sepsis screen is negative. Risk Assessment: Do you want to hurt yourself or someone else? Patient reports no desire to harm self or others. Onset of symptoms was February 29, 2024. 17:41 Method Of Arrival: Ambulatory [facility] 17:41 Acuity: MATILDE 3 nj Triage Assessment: 17:43 General: Appears in no apparent distress. uncomfortable, Behavior is calm, cooperative, nj appropriate for age. Pain: Complains of pain in abdomen Pain currently is 6 out of 10 on a pain scale. Historical: - Allergies: 17:42 No Known Allergies; nj1 - PMHx: 17:42 urinary problems; nj1 - Immunization history:: Client reports having NOT received the Covid vaccine. - Infectious Disease History:: Denies. - Social history:: Smoking status: Reported history of juuling and/or vaping. 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 Vital Signs: 17:41 BP 144 / 104; Pulse 76; Resp 18; Temp 98(TE); Pulse Ox 100% ; Weight 66.22 kg; Height 5 nj1 ft. 7 in. ; Pain 6/10; 17:41 Body Mass Index 22.87 (66.22 kg, 170.18 cm) [facility] 17:41 Pain Scale: Adult [facility] ED Course: 17:14 Patient arrived in ED. mg5 17:21 Marina Amaya PA-C is PHCP. sb4 17:21 Valentin Mcintyre MD is Attending Physician. sb4 17:42 Triage completed. nj1 17:43 Arm band placed on right wrist. nj1 18:57 Omega Faria MD is Referral Physician. sb4 Administered Medications: No medications were administered Outcome: 18:57 Discharge ordered by . sb4 19:36 Patient left the ED. bc6 Signatures: Marina Amaya PA-C PA-C sb4 Tawny Escalante bc6 Corry Howard, RN RN nj1 Cindi Vincent mg5
[2024-02-29 22:15] VITALS: BP 144/104; TEMP 98; O2SAT 100
== END 2024-02-29 19:36 | disposition home or self-care (01) ==
LOC: ER 17:11
DX: R33.9 Retention of urine, unspecified (principal)
CPT/HCPCS: 99281